=== PATIENT | male | born 1945 | race Caucasian/White ===

== ENCOUNTER 2021-02-06 17:49 | Emergency (ER) | payer MEDICARE ==
[2021-02-06] MEDS ORDERED: Zofran 4 MG/2 ML VIAL IV ONE (18:11)
[2021-02-06] MEDS ORDERED: MORPHINE SULFATE 4 MG INJ IV ONE (18:11)
[2021-02-06] MEDS ORDERED: MORPHINE SULFATE 4 MG INJ ONE (18:12)
[2021-02-06] MEDS ORDERED: Zofran 4 MG/2 ML VIAL ONE (18:12)
[2021-02-06 20:14] VITALS: O2SAT 97
[2021-02-06] MEDS ORDERED: HYDROCODONE-ACETAMIN 10-325 MG PO ONE (20:18)
[2021-02-06] MEDS ORDERED: OXYCODONE-ACETAMINOPHEN 10-325 PO STA (20:53)
--- NOTE | 2021-02-06 20:58 | ERPHSYRPT ---
- History of Present Illness Time Seen by Provider: 02/06/21 17:52 Source: patient, family Exam Limitations: no limitations Patient Subjective Stated Complaint: Pt states that he injured his ribs 3 weeks ago and was told by [facility] that he broke rib 7, he has never fully recovered and today he went to sit down in his chair and he got a "jolt" which caused him to fall forward and is now having pain in his medial lower spine that radiates to his ribs Triage Nursing Assessment: Pt brought to the ER by EMS, hypertensive, rates pain at this time as 3/10 but it gets severe when he moves, jennifer lower pitting edema, denies ever having issues with legs swelling in the past, denies any other injuries Physician History: 75 years old male with history of COPD presented in the ER with chief complaint of sudden onset mid to lower back pain earlier when he was bent to sit on a chair and felt a jolt in the mid to lower back with radiation to the seventh rib on the right side which he fractured almost 3 weeks ago. Denies any numbness tingling or weakness of lower extremities, pain is severe sharp shooting, aggravated with minimal movements and better with sitting upright position. Denies any difficulty breathing, abdominal pain palpitations, loss of bowel or bladder control. Timing/Duration: today, sudden, worse Method of Injury: bending Quality: sharp, stabbing Back Pain Location: T-spine Severity of Pain-Max: severe Severity of Pain-Current: severe Modifying Factors: Improves With: immobilization. Worsens With: movement Associated Symptoms: No fever, No chills, No urinary incontinence, No loss of bowel control, No constipation, No nausea, No vomiting, No problems urinating, No light-headedness, No dizziness, No numbness in legs/feet, No weakness, No sensory/motor loss, No tingling in legs/feet, No lower back pain, No muscle spasms Previous symptoms: no prior history Allergies/Adverse Reactions: No Known Drug Allergies Allergy (Verified 02/06/21 18:02) Home Medications: Roflumilast [Daliresp] 250 mcg PO 3XW 02/06/21 [History] Tiotropium Br/Olodaterol HCl [Stiolto Respimat Inhal [place]] 2 inh PO DAILY 02/06/21 [History] Travel Risk - International Travel Have you traveled outside of the country in past 3 weeks: No - Coronavirus Screening Are you exhibiting any of the following symptoms?: No Close contact with a COVID-19 positive Pt in past 14-21 Days: No - Vaccine Status Have you recieved a Covid-19 vaccination: No - Review of Systems Constitutional: No Symptoms Eyes: No Symptoms Ears, Nose, & Throat: No Symptoms Respiratory: Wheezing Cardiac: No Symptoms Abdominal/Gastrointestinal: No Symptoms Genitourinary Symptoms: No Symptoms Musculoskeletal: Back Pain Skin: No Symptoms Neurological: No Symptoms Psychological: No Symptoms Endocrine: No Symptoms Hematologic/Lymphatic: No Symptoms - Past Medical History Pertinent Past Medical History: Yes Respiratory History: COPD Other Medical History: kidney stones, sciatic nerve - Past Surgical History Past Surgical History: Yes - Social History Smoking Status: Former smoker Exposure to second hand smoke: No Drug Use: none Patient Lives Alone: No - Nursing Vital Signs Nursing Vital Signs: Initial Vital Signs Pulse Rate 101 H 02/06/21 17:51 Respiratory Rate 24 02/06/21 17:51 Blood Pressure 229/108 02/06/21 17:51 O2 Sat by Pulse Oximetry 95 02/06/21 17:51 Pain Scale Pain Intensity [Posterior 3 Medial Back] Pain Intensity 9 - Physical Exam General Appearance: no apparent distress, alert Eye Exam: PERRL/EOMI, eyes nml inspection Ears, Nose, Throat Exam: normal ENT inspection, pharynx normal Neck Exam: normal inspection, non-tender, supple, full range of motion Respiratory Exam: normal breath sounds, chest tenderness (Right seventh rib area), wheezing (Few scattered) Cardiovascular Exam: regular rate/rhythm, normal heart sounds Back Exam: normal inspection, vertebral tenderness (Lower thoracic upper lumbar), decreased range of motion, muscle spasm, point tenderness, No CVA tenderness Extremity Exam: normal range of motion, pelvis stable, pedal edema, swelling Neurologic Exam: alert, oriented x 3, cooperative, sensation nml, other (2+ symmetrical reflexes lower extremities. Intact sensation in the abdominal wall, back and lower extremities.), No motor deficits, No sensory deficit Skin Exam: normal color SpO2 Interpretation: normal SpO2: 97 O2 Delivery: Room Air Ordered Tests: Active Orders 24 hr Category Date Time Status LUMBAR SPINE W/O [CT] Stat Exams 02/06/21 18:10 Taken THORACIC SPINE W/O CONTRAST [CT] Stat Exams 02/06/21 18:10 Taken Medication Summary Discontinued Medications Generic Name Dose Route Start Last Admin Trade Name Mary PRN Reason Stop Dose Admin Hydrocodone Bitart/Acetaminophen 1 tablet 02/06/21 20:18 02/06/21 20:19 Hydrocodone-Acetamin 10-325 Mg PO 02/06/21 20:19 1 tablet STAT ONE Administration Morphine Sulfate 4 mg 02/06/21 18:11 02/06/21 18:21 Morphine Sulfate 4 Mg Inj IV 02/06/21 18:12 4 mg STAT ONE Administration Morphine Sulfate Confirm 02/06/21 18:12 Morphine Sulfate 4 Mg Inj Administered 02/06/21 18:13 Dose 4 mg .ROUTE .STK-MED ONE Ondansetron HCl 4 mg 02/06/21 18:11 02/06/21 18:21 Zofran 4 Mg/2 Ml Vial IV 02/06/21 18:12 4 mg STAT ONE Administration Ondansetron HCl Confirm 02/06/21 18:12 Zofran 4 Mg/2 Ml Vial Administered 02/06/21 18:13 Dose 4 mg .ROUTE .STK-MED ONE Oxycodone/Acetaminophen 2 tab 02/06/21 20:53 Oxycodone-Acetaminophen 10-325 PO 02/06/21 20:54 SENT HOME W/ PATIENT STA Oxycodone/Acetaminophen Confirm 02/06/21 21:03 Oxycodone-Acetaminophen 10-325 Administered 02/06/21 21:04 Dose 2 tab .ROUTE .STK-MED ONE - Progress Progress: improved, pain not gone completely Progress Note: 02/06/21 20:58 Is given IV pain medication followed by oral pills and pain is relatively much better but not completely resolved. Patient has negative neuro exam in lower extremities. CT thoracic spine showed T10 endplate fracture with 25% loss of vertebral height. Later on patient reports she has been hurting in the same area for the last 3 weeks although not this bad. It is quite possible that he has injured his vertebra 3 weeks ago and got worse today. Do not have a TLSO available here. Do not have beds available here for admission at [facility]. Offered transfer but patient wants to go home. Is given pain pills to go home and will give a prescription and recommended outpatient [facility] follow-up. Discussed signs symptoms of worsening needing return to ER which he seems understanding Counseled pt/family regarding: diagnosis, need for follow-up, rad results - Departure Departure Disposition: Home Clinical Impression: Closed T10 fracture Qualifiers: Encounter type: initial encounter Fracture morphology: other fracture Qualified Code(s): S22.078A - Other fracture of T9-T10 vertebra, initial encounter for closed fracture Condition: Stable Critical Care Time: No Referrals: DOCTOR,NO FAMILY [Primary Care Provider] - KASEY FERRARI MD [ACTIVE STAFF] - (1-2 days for reevaluation) ORTHO - ELIAN SCHULZ NP [NON-STAFF PHY W/O PRIVILEGES] - (1-2 days for reevaluation) Instructions: Vertebral Compression Fracture (DC) Additional Instructions: Take pain medications as needed. Use walker/cane for ambulation. Follow-up with Ortho clinic for reevaluation back support. Return to ER for intractable pain, numbness tingling weakness of waist down, loss of bowel or bladder control etc. Prescriptions: Oxycodone HCl/Acetaminophen [Percocet 7.5-325 mg Tablet] 1 each PO Q4-6HPRN PRN 3 Days #15 tablet MDD 5 PRN Reason: Pain
[2021-02-06] MEDS ORDERED: OXYCODONE-ACETAMINOPHEN 10-325 ONE (21:03)
[2021-02-06 22:29] VITALS: BP 182/79; PULSE 87
--- NOTE | 2021-02-07 08:43 | XRAY ---
Indication: Diffuse pain. Rib fracture 3 weeks ago. Multiple contiguous axial images obtained through the thoracic spine. Sagittal and coronal reformatted images obtained. Comparison: None Osseous structures demineralized consistent with patient's age. There is acute/subacute appearing fracture involving the inferior endplate of T10 with approximately 25% height loss. No spinal canal or foraminal compromise. Superior endplate of T8 demonstrate concave deformity anteriorly either prominent Schmorl node versus remote fracture. Incidental T12 vertebral hemangioma. Sagittal and coronal reformatted images demonstrates normal alignment with minimal multilevel degenerative disc space narrowing. Visualized lungs markedly limited due to respiration artifact. There is moderate pulmonary emphysema and moderate scattered arteriosclerotic calcifications. Also 1.3 cm indeterminant left upper lobe nodule. Impression: 1. T10 inferior endplate fracture as detailed. 2. T8 prominent Schmorl node versus remote fracture. 3. Osteopenia and T12 vertebral hemangioma. 4. Incidental pulmonary emphysema and 1.3 cm indeterminate left upper lobe nodule. Dedicated CT chest may yield further information.
--- NOTE | 2021-02-07 08:58 | XRAY ---
Indication: Diffuse pain. Rib fracture 3 weeks ago. Multiple contiguous axial images obtained through the lumbar spine. Sagittal and coronal reformatted images obtained. Comparison: None Osseous structures demineralized consistent with patient's age. No acute fracture, suspicious bony lesions, or osseous destructive process. Mild L4-S1 broad-based degenerative disc bulge and mild L5-S1 degenerative vacuum disc phenomena. No obvious disc herniation or spinal canal stenosis. Facets are symmetric. Sagittal and coronal reformatted images demonstrates normal alignment with L5-S1 disc space narrowing. Visualized noncontrasted soft tissues demonstrates moderate scattered arteriosclerotic calcifications. 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 Right kidney demonstrates nonobstructing punctate calculus. Visualized bowel loops demonstrate colonic diverticulosis. Impression: 1. Negative acute fracture/subluxation. 2. Osteopenia and L4-S1 degenerative disc disease. 3. 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
== END 2021-02-06 22:29 | disposition home or self-care (01) ==
LOC: ED 17:49
DX: S22.078A Other fracture of T9-T10 vertebra, initial encounter for closed fracture (principal); M54.5 Low back pain; M54.6 Pain in thoracic spine; X50.0XXA Overexertion from strenuous movement or load, initial encounter
CPT/HCPCS: 72128; 72131; 96374; 96375; 99284; J2270; J2405; A9270-GY

== ENCOUNTER 2021-02-15 13:52 | Emergency (ER) | payer MEDICARE ==
--- NOTE | 2021-02-15 13:57 | ERPHSYRPT ---
- History of Present Illness Time Seen by Provider: 02/15/21 13:57 Source: patient, family Exam Limitations: no limitations Physician History: This is a 75-year-old white male who in the last 5 weeks or so the patient had injured his ribs on the right side and has unknown rib fracture as well as a T10 thoracic spine fracture. He has been having issues with pain control. He has been given Percocet which helps control his pain but it also makes him nauseated and constipates him. He is out of his pain medication. He has been out for approximately a day and a half. Plain Tylenol and Advil have not controlled his pain. He did have vomiting x2 this morning. His main issue is that of lack of pain control. Patient did not fall and injure himself again. He was seen Dr. Cutler but his new primary doctor is Dr. Tanner. He has not seen Dr. Tanner yet. Patient has not seen pain specialist and has not been evaluated by physical therapy. Patient was brought into the emergency department by EMS. Occurred: other (Initial injury 5 weeks ago.) Injuries/Pain Location: middle (Thoracic spine and right ribs) Loss of Consciousness: no loss of consciousness Quality: sharpness Severity of Pain-Max: moderate Severity of Pain-Current: moderate Modifying Factors: Improves With: movement (Worsens), pain medication (Helps) Associated Symptoms (Fall): back pain, muscle spasms (At the level of the thoracic spine), other (Rib pain) Allergies/Adverse Reactions: No Known Drug Allergies Allergy (Verified 02/15/21 14:03) Home Medications: Roflumilast [Daliresp] 250 mcg PO UD 02/06/21 [History] Tiotropium Br/Olodaterol HCl [Stiolto Respimat Inhal [place]] 2 inh PO 1300 02/06/21 [History] Ibuprofen 200 mg [Motrin 200 mg] 200 mg PO Q6HPRN PRN 02/08/21 [History] Magnesium Oxide 400 mg PO DAILY PRN PRN 02/08/21 [History] Hx Tetanus, Diphtheria Vaccination/Date Given: No Hx Influenza Vaccination/Date Given: No Hx Pneumococcal Vaccination/Date Given: No Travel Risk - International Travel Have you traveled outside of the country in past 3 weeks: No - Coronavirus Screening Are you exhibiting any of the following symptoms?: No Close contact with a COVID-19 positive Pt in past 14-21 Days: No - Vaccine Status Have you recieved a Covid-19 vaccination: No - Review of Systems Constitutional: No Symptoms Eyes: No Symptoms Ears, Nose, & Throat: No Symptoms Respiratory: No Symptoms Cardiac: No Symptoms Abdominal/Gastrointestinal: No Symptoms Genitourinary Symptoms: No Symptoms Musculoskeletal: Back Pain, Other (Rib pain right side) Skin: No Symptoms Neurological: No Symptoms Psychological: No Symptoms Endocrine: No Symptoms Hematologic/Lymphatic: No Symptoms Immunological/Allergic: No Symptoms All Other Systems: Reviewed and Negative - Past Medical History Pertinent Past Medical History: Yes Neurological History: No Pertinent History ENT History: Cataracts Cardiac History: No Pertinent History Respiratory History: COPD Endocrine Medical History: No Pertinent History Musculoskeletal History: Fractures GI Medical History: GERD, Hernia History: No Pertinent History Psycho-Social History: No Pertinent History Male Reproductive Disorders: No Pertinent History Other Medical History: kidney stones, sciatic nerve - Past Surgical History Past Surgical History: Yes Neuro Surgical History: No Pertinent History Cardiac: No Pertinent History Respiratory: No Pertinent History Gastrointestinal: No Pertinent History Genitourinary: No Pertinent History Musculoskeletal: No Pertinent History Male Surgical History: No Pertinent History - Social History Smoking Status: Former smoker Exposure to second hand smoke: No Drug Use: none Patient Lives Alone: No - Nursing Vital Signs Nursing Vital Signs: Initial Vital Signs Temperature 97.1 F 02/15/21 13:54 Pulse Rate 91 H 02/15/21 13:54 Respiratory Rate 18 02/15/21 13:54 Blood Pressure 206/89 02/15/21 13:54 O2 Sat by Pulse Oximetry 94 L 02/15/21 13:54 Pain Scale Pain Intensity 0 - Anabel Coma Score Best Eye Response (Anabel): (4) open spontaneously Best Verbal Response (Anabel): (5) oriented Best Motor Response (Lorenzo): (6) obeys commands Lorenzo Total: 15 - Physical Exam General Appearance: mild distress, alert, obese Head Injury: no evidence of injury Eye Exam: PERRL/EOMI, eyes nml inspection ENT Exam: airway nml, nml ext.inspection, No evidence of ENT injury Neck Exam: supple, trachea midline, full range of motion, normal alignment, normal inspection Respiratory/Chest Exam: normal breath sounds, rib tenderness (Right side), No chest tenderness, No respiratory distress, No ecchymosis, No crepitus Cardiovascular Exam: normal heart sounds, regular rate/rhythm, murmur Gastrointestinal Exam: soft, normal bowel sounds, No tenderness Rectal Exam: not done Back Exam: normal inspection, decreased range of motion, muscle spasm, No CVA te nderness, No vertebral tenderness (Lower thoracic spine level) Extremity Exam: normal inspection, normal range of motion, capillary refill <3 sec, pelvis stable Neurologic Exam: alert, oriented x 3, cooperative, busperson II-XII nml as tested, normal mood/affect Skin Exam: normal color, warm, dry SpO2 Interpretation: normal O2 Delivery: Room Air - Course Nursing assessment & vital signs reviewed: Yes Ordered Tests: Active Orders 24 hr Category Date Time Status IV Insertion STAT Care 02/15/21 14:25 Active AMYLASE Stat Lab 02/15/21 15:00 Completed CBC W DIFF Stat Lab 02/15/21 14:25 Completed CMP Stat Lab 02/15/21 15:00 Completed LIPASE Stat Lab 02/15/21 15:00 Completed Lactic Acid Stat Lab 02/15/21 15:06 Completed UA W/RFX UR CULTURE Stat Lab 02/15/21 17:23 Completed Medication Summary Discontinued Medications Generic Name Dose Route Start Last Admin Trade Name Freq PRN Reason Stop Dose Admin Hydromorphone HCl 0.5 mg 02/15/21 14:25 02/15/21 14:45 Hydromorphone 1 Mg/Ml Injection IV 02/15/21 14:26 0.5 mg STAT ONE Administration Hydromorphone HCl Confirm 02/15/21 14:35 Hydromorphone 1 Mg/Ml Injection Administered 02/15/21 14:36 Dose 1 mg .ROUTE .STK-MED ONE Sodium Chloride 500 mls @ 500 mls/hr 02/15/21 14:27 02/15/21 16:06 Sodium Chloride 0.9% 500 Ml IV 02/15/21 15:26 Infused .Q1H ONE Infusion Sodium Chloride Confirm 02/15/21 14:35 Sodium Chloride 0.9% 500 Ml Administered 02/15/21 14:36 Dose 500 mls @ ud IV .STK-MED ONE Lorazepam 1 mg 02/15/21 14:27 02/15/21 14:42 Ativan 2 Mg/1 Ml Vial IV 02/15/21 14:28 1 mg STAT ONE Administration Lorazepam Confirm 02/15/21 14:35 Ativan 2 Mg/1 Ml Vial Administered 02/15/21 14:36 Dose 2 mg .ROUTE .STK-MED ONE Ondansetron HCl 4 mg 02/15/21 14:25 02/15/21 14:44 Zofran 4 Mg/2 Ml Vial IV 02/15/21 14:26 4 mg STAT ONE Administration Ondansetron HCl Confirm 02/15/21 14:34 Zofran 4 Mg/2 Ml Vial Administered 02/15/21 14:35 Dose 4 mg .ROUTE .STK-MED ONE Lab/Rad Data: Laboratory Result Diagrams 02/15/21 14:25 02/15/21 15:00 Laboratory Results 02/15/21 02/15/21 02/15/21 Range/Units 17:23 15:06 15:00 WBC (4.0-10.5) K/mm3 RBC (4.1-5.6) M/mm3 Hgb (12.5-18.0) gm/dl Hct (42-50) % MCV (78-100) fl MCH (26-32) pg MCHC (32-36) g/dl RDW (11.5-14.0) % Plt Count (150-450) K/mm3 MPV (7.5-11.0) fl Gran % (36.0-66.0) % Eos # (Auto) (0-0.5) Absolute Lymphs (auto) (1.0-4.6) Absolute Monos (auto) (0.0-1.3) Lymphocytes % (24.0-44.0) % Monocytes % (0.0-12.0) % Eosinophils % (0.00-5.0) % Basophils % (0.0-0.4) % Absolute Granulocytes (1.4-6.9) Basophils # (0-0.4) Sodium 138 (137-145) mmol/L Potassium 3.9 (3.5-5.1) mmol/L Chloride 102 (98-107) mmol/L Carbon Dioxide 28 (22-30) mmol/L Anion Gap 11.4 (5-15) MEQ/L BUN 20 (9-20) mg/dL Creatinine 0.80 (0.66-1.25) mg/dL Estimated GFR > 60.0 ML/MIN Glucose 105 (74-106) mg/dL Lactic Acid 0.8 (0.4-2.0) Calcium 9.3 (8.4-10.2) mg/dL Total Bilirubin 0.50 (0.2-1.3) mg/dL AST 23 (17-59) U/L ALT 29 (0-50) U/L Alkaline Phosphatase 85 (38-126) U/L Serum Total Protein 7.9 (6.3-8.2) g/dL Albumin 3.8 (3.5-5.0) g/dL Amylase 42 (30-110) U/L Lipase 29 (23-300) U/L Urine Color YELLOW (YELLOW) Urine Appearance CLEAR (CLEAR) Urine pH 7.0 (5-6) Ur Specific [place] 1.012 (1.005-1.025) Urine Protein NEGATIVE (Negative) Urine Ketones TRACE (NEGATIVE) Urine Blood SMALL (0-5) Hector/ul Urine Nitrite NEGATIVE (NEGATIVE) Urine Bilirubin NEGATIVE (NEGATIVE) Urine Urobilinogen NEGATIVE (0-1) mg/dL Ur Leukocyte Esterase NEGATIVE (NEGATIVE) Urine WBC (Auto) 0-2 (0-5) /HPF Urine RBC (Auto) 6-10 (0-2) /HPF U Epithel Cells (Auto) NONE (FEW) /HPF Urine Bacteria (Auto) NONE SEEN (NEGATIVE) /HPF Urine Mucus (Auto) SLIGHT (NEGATIVE) /HPF Urine Culture Reflexed NO (NO) Urine Glucose NEGATIVE (NEGATIVE) mg/dL 02/15/21 Range/Units 14:25 WBC 7.2 (4.0-10.5) K/mm3 RBC 4.71 (4.1-5.6) M/mm3 Hgb 14.6 (12.5-18.0) gm/dl Hct 45.7 (42-50) % MCV 97.0 (78-100) fl MCH 31.0 (26-32) pg MCHC 31.9 L (32-36) g/dl RDW 13.9 (11.5-14.0) % Plt Count 159 (150-450) K/mm3 MPV 11.4 H (7.5-11.0) fl Gran % 84.5 H (36.0-66.0) % Eos # (Auto) 0.03 (0-0.5) Absolute Lymphs (auto) 0.62 L (1.0-4.6) Absolute Monos (auto) 0.45 (0.0-1.3) Lymphocytes % 8.7 L (24.0-44.0) % Monocytes % 6.3 (0.0-12.0) % Eosinophils % 0.4 (0.00-5.0) % Basophils % 0.1 (0.0-0.4) % Absolute Granulocytes 6.04 (1.4-6.9) Basophils # 0.01 (0-0.4) Sodium (137-145) mmol/L Potassium (3.5-5.1) mmol/L Chloride (98-107) mmol/L Carbon Dioxide (22-30) mmol/L Anion Gap (5-15) MEQ/L BUN (9-20) mg/dL Creatinine (0.66-1.25) mg/dL Estimated GFR ML/MIN Glucose (74-106) mg/dL Lactic Acid (0.4-2.0) Calcium (8.4-10.2) mg/dL Total Bilirubin (0.2-1.3) mg/dL AST (17-59) U/L ALT (0-50) U/L Alkaline Phosphatase (38-126) U/L Serum Total Protein (6.3-8.2) g/dL Albumin (3.5-5.0) g/dL Amylase (30-110) U/L Lipase (23-300) U/L Urine Color (YELLOW) Urine Appearance (CLEAR) Urine pH (5-6) Ur Specific [place] (1.005-1.025) Urine Protein (Negative) Urine Ketones (NEGATIVE) Urine Blood (0-5) Hector/ul Urine Nitrite (NEGATIVE) Urine Bilirubin (NEGATIVE) Urine Urobilinogen (0-1) mg/dL Ur Leukocyte Esterase (NEGATIVE) Urine WBC (Auto) (0-5) /HPF Urine RBC (Auto) (0-2) /HPF U Epithel Cells (Auto) (FEW) /HPF Urine Bacteria (Auto) (NEGATIVE) /HPF Urine Mucus (Auto) (NEGATIVE) /HPF Urine Culture Reflexed (NO) Urine Glucose (NEGATIVE) mg/dL - Progress Progress: improved, pain not gone completely Progress Note: 02/15/21 17:50 Medical decision making: This patient's issue is pain control for chronic back issue and rib pain. He has stable fractures of both regions. He was out of his pain medicine. He does not have a pain specialist. He has not yet seen a new primary care physician. He is now comfortable after injections of pain medication. His work-up does not give a sufficient diagnosis enough for admission. His renal function is normal. We will place him on a combination of Demerol, Phenergan and steroids. He can then follow-up with his primary care physician who can evaluate him and possibly add a muscle relaxant to his regimen and/or refer him to physical therapy or a pain specialist. Counseled pt/family regarding: lab results, diagnosis, need for follow-up - Departure Departure Disposition: Home Clinical Impression: Back pain, Rib pain Condition: Stable Critical Care Time: No Referrals: DOCTOR,NO FAMILY [Primary Care Provider] - Additional Instructions: Take your medications as prescribed. Follow-up with your primary care doctor's office on Thursday February 18, 2021. Make sure that you request a referral to a pain specialist and physical therapy if indicated. Prescriptions: Meperidine HCl 50 mg [Demerol 50 MG] 50 mg PO Q8H PRN PRN #9 tablet MDD 3 PRN Reason: Moderate To Severe Pain Promethazine HCl 25 mg [Phenergan 25 mg] 25 mg PO Q8H PRN PRN #9 tablet MDD 3 PRN Reason: Moderate To Severe Pain Prednisone 10 mg [Deltasone 10 mg] 10 mg PO TID #12 tablet
[2021-02-15] MEDS ORDERED: Zofran 4 MG/2 ML VIAL IV ONE (14:25)
[2021-02-15] MEDS ORDERED: Hydromorphone 1 mg/ml Injection IV ONE (14:25)
[2021-02-15] MEDS ORDERED: Sodium Chloride 0.9% 500 ML 500 ML IV ONE ×2 (14:27→14:35)
[2021-02-15] MEDS ORDERED: Ativan 2 MG/1 ML VIAL IV ONE (14:27)
[2021-02-15] MEDS ORDERED: Zofran 4 MG/2 ML VIAL ONE (14:34)
[2021-02-15] MEDS ORDERED: Hydromorphone 1 mg/ml Injection ONE (14:35)
[2021-02-15] MEDS ORDERED: Ativan 2 MG/1 ML VIAL ONE (14:35)
[2021-02-15 15:19] LABS: Absolute Neutrophil Ct (ANC) 6.04 (1.4-6.9); BASOPHIL % 0.1 % (0.0-0.4); Basophil (Absolute #) 0.01 (0-0.4); Eosinophil % 0.4 % (0.00-5.0); Eosinophil (Absolute #) 0.03 (0-0.5); Hematocrit 45.7 % (42-50); Hemoglobin 14.6 gm/dl (12.5-18.0); Lymphocyte (Absolute #) 0.62 (1.0-4.6); Lymphocytes % 8.7 % (24.0-44.0); Mean Corpuscular Hgb Concent. 31.9 g/dl (32-36); Mean Platelet Volume 11.4 fl (7.5-11.0); Monocyte (Absolute #) 0.45 (0.0-1.3); Monocytes % 6.3 % (0.0-12.0); Neutrophil % 84.5 % (36.0-66.0); Platelet Count 159 K/mm3 (150-450); Red Blood Count 4.71 M/mm3 (4.1-5.6); Red Cell Distribution Width 13.9 % (11.5-14.0); White Blood Count 7.2 K/mm3 (4.0-10.5)
[2021-02-15 15:35] LABS: ALBUMIN 3.8 g/dL (3.5-5.0); ALKALINE PHOSPHATASE 85 U/L (38-126); AMYLASE 42 U/L (30-110); ANION GAP 11.4 MEQ/L (5-15); BLOOD UREA NITROGEN 20 mg/dL (9-20); CHLORIDE 102 mmol/L (98-107); Calcium 9.3 mg/dL (8.4-10.2); Carbon Dioxide 28 mmol/L (22-30); EST GLOMERULAR FILTRATION RATE > 60.0 ML/MIN; Glucose 105 mg/dL (74-106); LIPASE 29 U/L (23-300); Potassium 3.9 mmol/L (3.5-5.1); SGOT/AST 23 U/L (17-59); SGPT/ALT 29 U/L (0-50); SODIUM 138 mmol/L (137-145); Total Protein 7.9 g/dL (6.3-8.2)
[2021-02-15 17:22] VITALS: BP 189/86; PULSE 95; O2SAT 98
[2021-02-15 17:39] LABS: Appearance CLEAR (CLEAR); Bilirubin NEGATIVE (NEGATIVE); Blood SMALL Ery/ul (0-5); Glucose NEGATIVE (NEGATIVE); Ketones TRACE (NEGATIVE); Leukocyte Esterase NEGATIVE (NEGATIVE); Mucus SLIGHT /HPF (NEGATIVE); Nitrite NEGATIVE (NEGATIVE); Protein,Urine Dip NEGATIVE (Negative); Specific Gravity 1.012 (1.005-1.025); Urobilinogen NEGATIVE mg/dL (0-1); WBC 0-2 /HPF (0-5)
[2021-02-15 17:40] LABS: Bacteria NONE SEEN /HPF (NEGATIVE)
== END 2021-02-15 18:14 | disposition home or self-care (01) ==
LOC: ED 13:52
DX: R07.81 Pleurodynia (principal); M62.838 Other muscle spasm; J44.9 Chronic obstructive pulmonary disease, unspecified
CPT/HCPCS: 36415; 80053; 81001; 82150; 83605; 83690; 85025; 96374; 96375; 99284; J1170; J2060; J2405

== ENCOUNTER 2021-02-19 05:59 | Emergency (ER) | payer MEDICARE ==
--- NOTE | 2021-02-19 07:06 | ERPHSYRPT ---
- History of Present Illness Time Seen by Provider: 02/19/21 07:00 Source: patient, family Exam Limitations: no limitations Patient Subjective Stated Complaint: Patient states " I woke up around 0300 and was not feeliong well and called my . I had backed into a fridge handle and fractured the 7th rib on my right side and FX of T-10 of my spine. Around 0415 I started having severe pain in my right side so I took a pain med and phenergan and around 0500 I started vomiting in which has now made my pain way worse and when I vomited my throat and esophagus started burning like crazy so I called 911." Triage Nursing Assessment: Patient arrived to ED per ambulance. Patient A/O times 4. Patient able to follow instructions without difficulty. Lungs diminished in all lobes A/P throughout. Patient denies any SOB or chest pain or discomfort. Cap refill < 3 seconds. No S/S of acute respiratory distress noted. 02 sat 95% on room air. Patient with non-pitting edema to bilateral lower extremities. + pedal and radial pulses noted bilateral. Patient with 20G IV in left AC per EMS. Lines flushes without difficulty. No S/S of infiltration noted. Patient stated his nausea is better since Zofran and now is requesting something for his pain in the right side/ABD area R/T FX rib. Patient stated he had not taken any pain meds in the last 24 hours with exception of hydromorphone 2mg at 0415 which he thinks made him sick. Patient denies eating anything with pain med. Patient educated to try some crackers or something small when he takes pain meds and educated to take pain meds as needed/ordered to keep pain at comfortable level. Skin turgor 4-5 seconds. Patient hypertensive upon arrival. Physician History: This is a 75-year-old white male with known COPD who has been seen in our emergency department 4 times in the last 2 weeks. Patient did injure his back sustaining a thoracic spine compression fracture as well as sustaining a rib fracture. This injury occurred several weeks ago. He is coming to the emerge ncy department with complaints of pain and nausea. He was last seen by me in this emergency room on 02/15/2021 with similar complaints. He was sent home with a prescription for Phenergan and Dilaudid. They still have Dilaudid pills remaining. Patient was told to follow-up with his new primary care doctor, Dr. Tanner by phone on 02/18/2021. They did not. He has been told to follow-up each time after each emergency room visit. He has not done so. This morning, he started having some heartburn which she occasionally has but he felt that it was different than usual. Because of the persistence of this patient's intermittent back pain, nausea vomiting, and now new heartburn symptoms he came back into the emergency department for evaluation. He denies fever. He denies shortness of breath. Timing/Duration: intermittent, worse Severity: moderate Associated Symptoms: nausea, vomiting, heartburn, No abdominal pain, No shortness of breath Allergies/Adverse Reactions: No Known Drug Allergies Allergy (Verified 02/19/21 06:08) Home Medications: Roflumilast [Daliresp] 250 mcg PO UD 02/06/21 [History] Tiotropium Br/Olodaterol HCl [Stiolto Respimat Inhal [place]] 2 inh PO 1300 02/06/21 [History] Magnesium Oxide 400 mg PO DAILY PRN PRN 02/08/21 [History] Hx Tetanus, Diphtheria Vaccination/Date Given: No Hx Influenza Vaccination/Date Given: No Hx Pneumococcal Vaccination/Date Given: No Immunizations Up to Date: Yes Travel Risk - International Travel Have you traveled outside of the country in past 3 weeks: No - Coronavirus Screening Are you exhibiting any of the following symptoms?: No Close contact with a COVID-19 positive Pt in past 14-21 Days: No - Vaccine Status Have you recieved a Covid-19 vaccination: No - Review of Systems Constitutional: No Symptoms Eyes: No Symptoms Ears, Nose, & Throat: No Symptoms Respiratory: No Symptoms Abdominal/Gastrointestinal: Nausea, Vomiting Genitourinary Symptoms: No Symptoms Musculoskeletal: No Symptoms Skin: No Symptoms Neurological: No Symptoms Psychological: No Symptoms Endocrine: No Symptoms Hematologic/Lymphatic: No Symptoms Immunological/Allergic: No Symptoms All Other Systems: Reviewed and Negative - Past Medical History Pertinent Past Medical History: Yes Neurological History: No Pertinent History ENT History: Cataracts Cardiac History: No Pertinent History Respiratory History: COPD Endocrine Medical History: No Pertinent History Musculoskeletal History: Fractures GI Medical History: GERD, Hernia History: No Pertinent History Psycho-Social History: No Pertinent History Male Reproductive Disorders: No Pertinent History Other Medical History: HX Kidney Stones, HX Sciatic Nerve Pain - Past Surgical History Past Surgical History: Yes Neuro Surgical History: No Pertinent History Cardiac: No Pertinent History Respiratory: No Pertinent History Gastrointestinal: No Pertinent History Genitourinary: No Pertinent History Musculoskeletal: No Pertinent History Male Surgical History: No Pertinent History - Social History Smoking Status: Former smoker Exposure to second hand smoke: No Drug Use: none Patient Lives Alone: No - Nursing Vital Signs Nursing Vital Signs: Initial Vital Signs Temperature 97.7 F 02/19/21 06:05 Pulse Rate 68 02/19/21 06:05 Respiratory Rate 22 02/19/21 06:05 Blood Pressure 156/106 02/19/21 06:05 O2 Sat by Pulse Oximetry 95 02/19/21 06:05 Pain Scale Pain Intensity 2 - Physical Exam General Appearance: mild distress, alert, anxiety, obese Eye Exam: PERRL/EOMI, eyes nml inspection Ears, Nose, Throat Exam: normal ENT inspection, moist mucous membranes Neck Exam: normal inspection, non-tender, supple, full range of motion Respiratory Exam: normal breath sounds, lungs clear, airway intact, No chest tenderness, No respiratory distress Cardiovascular Exam: irregular Gastrointestinal/Abdomen Exam: soft, normal bowel sounds, No tenderness Rectal Exam: not done Back Exam: normal inspection, decreased range of motion Extremity Exam: normal range of motion, pelvis stable, pedal edema, swelling Neurologic Exam: alert, oriented x 3, cooperative, office clinician II-XII nml as tested, normal mood/affect Skin Exam: normal color, warm, dry Lymphatic Exam: No adenopathy SpO2 Interpretation: normal SpO2: 95 O2 Delivery: Room Air - Course Nursing assessment & vital signs reviewed: Yes EKG Interpreted by Me: RATE (150), A-fib, prolonged QT interval, Other (On today's EKG when compared to EKG dated 02/08/2021, there is new atrial fibrillation present and borderline prolonged QT interval. T wave abnormality seen on the prior EKG have now resolved.) Ordered Tests: Active Orders 24 hr Category Date Time Status EKG-ER Only STAT Care 02/19/21 07:06 Active EKG-ER Only STAT Care 02/19/21 09:20 Active IV Insertion STAT Care 02/19/21 07:06 Active Pulse Oximetry (ED) STAT Care 02/19/21 07:06 Active CHEST WITH CONTRAST [CT] Stat Exams 02/19/21 07:11 Completed CBC W DIFF Stat Lab 02/19/21 07:42 Completed CMP Stat Lab 02/19/21 07:42 Completed D-DIMER QUANTITATIVE Stat Lab 02/19/21 07:42 Completed NT PRO BNP Stat Lab 02/19/21 07:42 Completed PROTIME WITH INR Stat Lab 02/19/21 07:42 Completed TROPONIN Q3H Lab 02/19/21 07:42 Completed TROPONIN Q3H Lab 02/19/21 10:15 Ordered TROPONIN Q3H Lab 02/19/21 13:15 Ordered TROPONIN Q3H Lab 02/19/21 16:15 Ordered TROPONIN Q3H Lab 02/19/21 19:15 Ordered Transfer Order Routine Transfer 02/19/21 Ordered Medication Summary Generic Name Dose Route Start Last Admin Trade Name Freq PRN Reason Stop Dose Admin Sodium Chloride 1,000 mls @ 50 mls/hr 02/19/21 07:15 02/19/21 07:46 Sodium Chloride 0.9% 1000 Ml IV 03/21/21 07:14 50 mls/hr .Q20H MAUREEN Administration Diltiazem HCl 100 mls @ 5 mls/hr 02/19/21 09:04 Cardizem Drip 100 Mg/100 Ml D5w IV 03/21/21 09:03 .Q20H PRN HEART RATE/ A-FIB Protocol 5 MG/HR Discontinued Medications Generic Name Dose Route Start Last Admin Trade Name Freq PRN Reason Stop Dose Admin Diltiazem HCl 20 mg 02/19/21 08:55 02/19/21 08:58 Cardizem Iv 50 Mg/10 Ml IV 02/19/21 08:56 50 mg STAT ONE Administration Diltiazem HCl Confirm 02/19/21 08:57 Cardizem Iv 50 Mg/10 Ml Administered 02/19/21 08:58 Dose 50 mg IV .STK-MED ONE Furosemide 40 mg 02/19/21 07:46 02/19/21 07:49 Lasix 40 Mg/4 Ml IV 02/19/21 07:47 40 mg STAT ONE Administration Furosemide Confirm 02/19/21 07:48 Lasix 40 Mg/4 Ml Administered 02/19/21 07:49 Dose 40 mg .ROUTE .STK-MED ONE Metoprolol Tartrate 5 mg 02/19/21 07:47 02/19/21 07:49 Lopressor 5 Mg/5 Ml Injection IV 02/19/21 07:48 5 mg STAT ONE Administration Metoprolol Tartrate Confirm 02/19/21 07:48 Lopressor 5 Mg/5 Ml Injection Administered 02/19/21 07:49 Dose 5 mg IV .STK-MED ONE Morphine Sulfate 4 mg 02/19/21 07:06 02/19/21 07:45 Morphine Sulfate 4 Mg Inj IV 02/19/21 07:07 4 mg STAT ONE Administration Morphine Sulfate Confirm 02/19/21 07:41 Morphine Sulfate 4 Mg Inj Administered 02/19/21 07:42 Dose 4 mg .ROUTE .STK-MED ONE Ondansetron HCl 4 mg 02/19/21 07:06 02/19/21 07:45 Zofran 4 Mg/2 Ml Vial IV 02/19/21 07:07 4 mg STAT ONE Administration Ondansetron HCl Confirm 02/19/21 07:41 Zofran 4 Mg/2 Ml Vial Administered 02/19/21 07:42 Dose 4 mg .ROUTE .STK-MED ONE Pantoprazole Sodium 40 mg 02/19/21 07:08 02/19/21 07:45 Protonix 40 Mg Iv IV 02/19/21 07:09 40 mg STAT ONE Administration Pantoprazole Sodium Confirm 02/19/21 07:41 Protonix 40 Mg Iv Administered 02/19/21 07:42 Dose 40 mg IV .STK-MED ONE Lab/Rad Data: Laboratory Result Diagrams 02/19/21 07:42 02/19/21 07:42 Laboratory Results 02/19/21 02/19/21 02/19/21 Range/Units 07:42 07:42 07:42 WBC (4.0-10.5) K/mm3 RBC (4.1-5.6) M/mm3 Hgb (12.5-18.0) gm/dl Hct (42-50) % MCV (78-100) fl MCH (26-32) pg MCHC (32-36) g/dl RDW (11.5-14.0) % Plt Count (150-450) K/mm3 MPV (7.5-11.0) fl Gran % (36.0-66.0) % Eos # (Auto) (0-0.5) Absolute Lymphs (auto) (1.0-4.6) Absolute Monos (auto) (0.0-1.3) Lymphocytes % (24.0-44.0) % Monocytes % (0.0-12.0) % Eosinophils % (0.00-5.0) % Basophils % (0.0-0.4) % Absolute Granulocytes (1.4-6.9) Basophils # (0-0.4) PT 12.2 (8.83-12.87) SECONDS INR 1.08 (0.8-3.0) D-Dimer 1461 H* (215-500) ng/mL Sodium 140 (137-145) mmol/L Potassium 4.1 (3.5-5.1) mmol/L Chloride 103 (98-107) mmol/L Carbon Dioxide 30 (22-30) mmol/L Anion Gap 11.2 (5-15) MEQ/L BUN 28 H (9-20) mg/dL Creatinine 1.03 (0.66-1.25) mg/dL Estimated GFR > 60.0 ML/MIN Glucose 107 H (74-106) mg/dL Calcium 9.4 (8.4-10.2) mg/dL Total Bilirubin 0.40 (0.2-1.3) mg/dL AST 22 (17-59) U/L ALT 31 (0-50) U/L Alkaline Phosphatase 81 (38-126) U/L Troponin I 0.082 H* (0.000-0.034) ng/mL NT-Pro-B Natriuret Pep 1360 H (0-900) pg/mL Serum Total Protein 7.7 (6.3-8.2) g/dL Albumin 3.6 (3.5-5.0) g/dL 02/19/21 Range/Units 07:42 WBC 7.8 (4.0-10.5) K/mm3 RBC 5.05 (4.1-5.6) M/mm3 Hgb 15.5 (12.5-18.0) gm/dl Hct 49.2 (42-50) % MCV 97.4 (78-100) fl MCH 30.7 (26-32) pg MCHC 31.5 L (32-36) g/dl RDW 14.2 H (11.5-14.0) % Plt Count 178 (150-450) K/mm3 MPV 10.9 (7.5-11.0) fl Gran % 72.3 H (36.0-66.0) % Eos # (Auto) 0.06 (0-0.5) Absolute Lymphs (auto) 1.10 (1.0-4.6) Absolute Monos (auto) 0.97 (0.0-1.3) Lymphocytes % 14.1 L (24.0-44.0) % Monocytes % 12.5 H (0.0-12.0) % Eosinophils % 0.8 (0.00-5.0) % Basophils % 0.3 (0.0-0.4) % Absolute Granulocytes 5.63 (1.4-6.9) Basophils # 0.02 (0-0.4) PT (8.83-12.87) SECONDS INR (0.8-3.0) D-Dimer (215-500) ng/mL Sodium (137-145) mmol/L Potassium (3.5-5.1) mmol/L Chloride (98-107) mmol/L Carbon Dioxide (22-30) mmol/L Anion Gap (5-15) MEQ/L BUN (9-20) mg/dL Creatinine (0.66-1.25) mg/dL Estimated GFR ML/MIN Glucose (74-106) mg/dL Calcium (8.4-10.2) mg/dL Total Bilirubin (0.2-1.3) mg/dL AST (17-59) U/L ALT (0-50) U/L Alkaline Phosphatase (38-126) U/L Troponin I (0.000-0.034) ng/mL NT-Pro-B Natriuret Pep (0-900) pg/mL Serum Total Protein (6.3-8.2) g/dL Albumin (3.5-5.0) g/dL - Progress Progress: improved, pain not gone completely, re-examined Progress Note: 02/19/21 09:27 CAT scan of the chest with contrast is negative for pulmonary embolus. There is pulmonary emphysema present. Patient has left upper lobe noncalcified nodule that is worrisome for malignancy. The prior T10 fracture and other chronic thoracic spine findings are unchanged when compared to thoracic spine CT scan performed previously. Medical decision making: This patient has new onset atrial fibrillation, and elevated troponin level and CHF. He also presented with hypertension. Patient has a known thoracic spine fracture as well as right-sided rib fractures. They have been present for approximately 5 to 6 weeks. However the pain has been intermittently present and intractable. Patient has not seen anybody in follow- up since his first visit here approximately 2 to 3 weeks ago. We do not have any beds available today at [facility]. Patient will need to be transferred out to another facility where there is a electrical designer present and available. 02/19/21 09:39 Repeat twelve-lead EKG after the Cardizem bolus and Cardizem drip performed at 935 today in the morning shows a heart rate of 84 persistent atrial fibrillation no other changes. I spoke with Dr. Roberts who is the emergency room physician covering [facility] emergency department. I reviewed the patient history, physical findings, x-ray results and laboratory results. Dr. Roberts accepts the patient in transfer. I reviewed the CAT scan results with the patient and his spouse including the presence of the left upper lobe pulmonary nodule that is concer sangeeta for malignancy. Counseled pt/family regarding: lab results, diagnosis, need for follow-up, rad results - Departure Departure Disposition: Transfer Clinical Impression: Hypertension, New onset atrial fibrillation, Congestive heart failure, Intractable back pain, Left upper lobe pulmonary nodule, Elevated troponin, Intractable vomiting with nausea Condition: Stable Critical Care Time: Yes Critical Care Time(excluding separately billable procedures): Critical 30-74 mins Referrals: DOCTOR,NO FAMILY [NON-STAFF PHY W/O PRIVILEGES] - Instructions: Heart Failure
[2021-02-19] MEDS ORDERED: PROTONIX 40 MG IV IV ONE (07:41)
[2021-02-19] MEDS ORDERED: MORPHINE SULFATE 4 MG INJ ONE (07:41)
[2021-02-19] MEDS ORDERED: Zofran 4 MG/2 ML VIAL ONE (07:41)
[2021-02-19] MEDS ORDERED: Sodium Chloride 0.9% 1000 ML 1,000 ML ONE (07:41)
[2021-02-19] MEDS: PROTONIX 40 MG IV IV ONE (07:45)
[2021-02-19] MEDS: Zofran 4 MG/2 ML VIAL IV ONE (07:45)
[2021-02-19] MEDS: MORPHINE SULFATE 4 MG INJ IV ONE (07:45)
[2021-02-19] MEDS: Sodium Chloride 0.9% 1000 ML 1,000 ML IV SCH (07:46)
[2021-02-19] MEDS ORDERED: Lasix 40 MG/4 ML ONE (07:48)
[2021-02-19] MEDS ORDERED: LOPRESSOR 5 MG/5 ML INJECTION IV ONE (07:48)
[2021-02-19] MEDS: LOPRESSOR 5 MG/5 ML INJECTION IV ONE (07:49)
[2021-02-19] MEDS: Lasix 40 MG/4 ML IV ONE (07:49)
[2021-02-19 07:52] LABS: Absolute Neutrophil Ct (ANC) 5.63 (1.4-6.9); BASOPHIL % 0.3 % (0.0-0.4); Basophil (Absolute #) 0.02 (0-0.4); Eosinophil % 0.8 % (0.00-5.0); Eosinophil (Absolute #) 0.06 (0-0.5); Hematocrit 49.2 % (42-50); Hemoglobin 15.5 gm/dl (12.5-18.0); Lymphocytes % 14.1 % (24.0-44.0); Mean Cell Volume 97.4 fl (78-100); Mean Corpuscular Hemoglobin 30.7 pg (26-32); Mean Corpuscular Hgb Concent. 31.5 g/dl (32-36); Mean Platelet Volume 10.9 fl (7.5-11.0); Monocyte (Absolute #) 0.97 (0.0-1.3); Monocytes % 12.5 % (0.0-12.0); Neutrophil % 72.3 % (36.0-66.0); Platelet Count 178 K/mm3 (150-450); Red Blood Count 5.05 M/mm3 (4.1-5.6); Red Cell Distribution Width 14.2 % (11.5-14.0); White Blood Count 7.8 K/mm3 (4.0-10.5)
[2021-02-19 08:10] LABS: INR 1.08 (0.8-3.0); PROTIME 12.2 SECONDS (8.83-12.87)
[2021-02-19 08:17] LABS: ALBUMIN 3.6 g/dL (3.5-5.0); ALKALINE PHOSPHATASE 81 U/L (38-126); ANION GAP 11.2 MEQ/L (5-15); BLOOD UREA NITROGEN 28 mg/dL (9-20); CHLORIDE 103 mmol/L (98-107); Calcium 9.4 mg/dL (8.4-10.2); Carbon Dioxide 30 mmol/L (22-30); Creatinine 1 1.03 mg/dL (0.66-1.25); EST GLOMERULAR FILTRATION RATE > 60.0 ML/MIN; Glucose 107 mg/dL (74-106); NT PRO BNP 1360 pg/mL (0-900); Potassium 4.1 mmol/L (3.5-5.1); SGOT/AST 22 U/L (17-59); SGPT/ALT 31 U/L (0-50); SODIUM 140 mmol/L (137-145); Total Protein 7.7 g/dL (6.3-8.2)
[2021-02-19] MEDS ORDERED: Cardizem IV 50 MG/10 ML IV ONE (08:57)
[2021-02-19] MEDS: Cardizem IV 50 MG/10 ML IV ONE (08:58)
[2021-02-19] MEDS ORDERED: CARDIZEM DRIP 100 MG/100 ML D5W 100 ML IV PRN (09:04)
[2021-02-19] MEDS ORDERED: CARDIZEM DRIP 100 MG/100 ML D5W 100 ML IV ONE (09:07)
--- NOTE | 2021-02-19 09:20 | XRAY ---
Indication: Chest and back pain. Known T10 fracture. Multiple contiguous axial images obtained through the chest using 100 cc Isovue 370 contrast and PE protocol. Comparison: None There is good opacification of the pulmonary arteries to include the lobar and segmental branches. No pulmonary embolus. Heart is borderline enlarged. Aorta demonstrates scattered arteriosclerotic calcifications without aneurysm/dissection. No pathologic mediastinal/hilar lymphadenopathy. Lungs demonstrate diffuse pulmonary emphysema with minimal scattered fibrosis/scarring bilaterally and tiny right upper lobe calcified granuloma. Posterior left upper lobe demonstrates a 1.3 cm noncalcified nodule with irregular margins extending to the pleura worrisome for malignancy. No infiltrate or effusion. Bony thorax demonstrates osteopenia and CT proven T10 fracture as seen on CT thoracic spine February 06, 2021. Also stable T8 superior endplate concave deformity either prominent Schmorl node versus remote fracture and incidental T12 vertebral hemangioma. Limited upper abdomen including adrenal glands are unremarkable. Impression: 1. Negative pulmonary embolus. 2. Pulmonary emphysema, left upper lobe noncalcified nodule worrisome for malignancy, T10 fracture, and chronic bony findings all unchanged with respect to recent CT thoracic spine.
[2021-02-19 09:36] VITALS: BP 115/76; PULSE 85
[2021-02-19 09:41] VITALS: O2SAT 95
== END 2021-02-19 10:11 | disposition short-term general hospital (02) ==
LOC: ED 05:59
DX: I10 Essential (primary) hypertension (principal); I48.91 Unspecified atrial fibrillation; I50.9 Heart failure, unspecified; M54.9 Dorsalgia, unspecified; R91.1 Solitary pulmonary nodule; R74.8 Abnormal levels of other serum enzymes; R11.2 Nausea with vomiting, unspecified; Z87.442 Personal history of urinary calculi; J44.9 Chronic obstructive pulmonary disease, unspecified; Z79.899 Other long term (current) drug therapy
CPT/HCPCS: 36000; 36415; 71260; 80053; 83880; 84484; 85025; 85379; 85610; 93005; 93041; 94760; 96360; 96361; 96374; 96375; 99285; 99291; J1940; J2270; J2405

== ENCOUNTER 2021-03-15 13:17 | Observation (INO) | payer MEDICARE ==
--- NOTE | 2021-03-15 13:44 | XRAY ---
Indication: Dyspnea. COPD. Comparison: February 08, 2021. Portable chest remains hyperinflated without focal infiltrate, consolidation, or large effusion. Stable CT proven left upper lobe noncalcified nodule. Heart not enlarged. Bony thorax again demonstrates osteopenia with new T10 kyphoplasty. Impression: Again COPD. Grossly stable left upper lobe noncalcified nodule further detailed CT PE study February 19, 2021. No new/acute cardiopulmonary abnormalities.
[2021-03-15 13:49] LABS: Absolute Neutrophil Ct (ANC) 3.39 (1.4-6.9); BASOPHIL % 0.2 % (0.0-0.4); Basophil (Absolute #) 0.01 (0-0.4); Eosinophil % 2.3 % (0.00-5.0); Eosinophil (Absolute #) 0.12 (0-0.5); Hematocrit 40.8 % (42-50); Hemoglobin 12.7 gm/dl (12.5-18.0); Lymphocyte (Absolute #) 1.09 (1.0-4.6); Lymphocytes % 20.5 % (24.0-44.0); Mean Cell Volume 98.3 fl (78-100); Mean Corpuscular Hemoglobin 30.6 pg (26-32); Mean Corpuscular Hgb Concent. 31.1 g/dl (32-36); Mean Platelet Volume 10.9 fl (7.5-11.0); Monocytes % 13.2 % (0.0-12.0); Neutrophil % 63.8 % (36.0-66.0); Platelet Count 187 K/mm3 (150-450); Red Blood Count 4.15 M/mm3 (4.1-5.6); Red Cell Distribution Width 14.4 % (11.5-14.0); White Blood Count 5.3 K/mm3 (4.0-10.5)
[2021-03-15 14:15] LABS: ALBUMIN 3.6 g/dL (3.5-5.0); ALKALINE PHOSPHATASE 129 U/L (38-126); ANION GAP 12.5 MEQ/L (5-15); BLOOD UREA NITROGEN 20 mg/dL (9-20); CHLORIDE 97 mmol/L (98-107); Calcium 9.6 mg/dL (8.4-10.2); Carbon Dioxide 33 mmol/L (22-30); Creatinine 1 1.24 mg/dL (0.66-1.25); EST GLOMERULAR FILTRATION RATE > 60.0 ML/MIN; Glucose 105 mg/dL (74-106); NT PRO BNP 892 pg/mL (0-900); Potassium 4.2 mmol/L (3.5-5.1); SGOT/AST 67 U/L (17-59); SGPT/ALT 94 U/L (0-50); SODIUM 138 mmol/L (137-145); Total Protein 7.9 g/dL (6.3-8.2)
--- NOTE | 2021-03-15 14:18 | ERPHSYRPT ---
- History of Present Illness Source: patient, other (SO) Patient Subjective Stated Complaint: Pt states that he was headed to the doctors office and became short of breath Triage Nursing Assessment: Pt brought to the ER by EMS, hypertensive, rates old rib pain as 10/28, wears 4L NC at home and EMS brought him in on 6L, oxygen is at 100%, skin n/w/d, pulses normal, doesn't appear to be in any distress Physician History: 75 yo wm who had a VA on 02/19/21 w subsequent cath wo stents/CABG presents w increasing lethargy and dyspnea which got worse today after pt took off his 4L O2 NC to get dressed for his appointment w Dr. Tanner. Pt has h/o COPD/CHF/VA and was 2L O2 dep at night before VA. He denies CP/fever/cough/N/V/D/melena/hematochezia. Timing/Duration: today Activities at Onset: other (Getting dressed) Severity of Dyspnea-Max: moderate Severity of Dyspnea-Current: moderate Possible Cause: frequent episodes Modifying Factors: Improves With: activity Associated Symptoms: edema, loss of appetite, weakness, leg swelling, No anxiety, No cough, No chest pain/discomfort, No fever, No insomnia, No lightheadedness, No ankle swelling, No chills, No hemoptysis, No calf pain, No dizziness, No heaviness, No heart racing, No lightheadedness, No muscle spasms feet, No muscle spasms hands, No painful breathing, No productive cough, No sweating, No tightness, No tingling face, No tingling hands Allergies/Adverse Reactions: No Known Drug Allergies Allergy (Verified 03/15/21 13:34) Home Medications: Roflumilast [Daliresp] 250 mcg PO UD 02/06/21 [History] Tiotropium Br/Olodaterol HCl [Stiolto Respimat Inhal [place]] 2 inh PO 1300 02/06/21 [History] Magnesium Oxide 400 mg PO DAILY PRN PRN 02/08/21 [History] Acetaminophen [Tylenol] 500 tab PO Q8H PRN 03/15/21 [History] Aspirin EC 81 mg [Ecotrin 81 mg] 81 mg PO DAILY 03/15/21 [History] Atorvastatin Calcium 80 mg PO DAILY 03/15/21 [History] Cyclobenzaprine HCl 10 mg [Cyclobenzaprine 10 MG] 10 mg PO TID PRN PRN 03/15/21 [History] Dapagliflozin Propanediol [Farxiga] 10 mg PO DAILY 03/15/21 [History] Famotidine [Pepcid] 40 mg PO UD PRN 03/15/21 [History] Furosemide 40 mg [Lasix 40 MG] 40 mg PO BID 03/15/21 [History] Guaifenesin 600 mg ER [Mucinex 600MG ER Tabs] 600 mg PO UD PRN 03/15/21 [History] Metoprolol Succinate 50 mg [Toprol Xl 50 MG] 50 mg PO DAILY 03/15/21 [History] Potassium Chloride [Klor-Con M20] 20 meq PO DAILY 03/15/21 [History] Sacubitril/Valsartan [Entresto 24 mg-26 mg Tablet] 1 each PO BID 03/15/21 [History] Tramadol HCl 50 mg [Ultram 50 mg] 50 mg PO UD PRN 03/15/21 [History] Hx Tetanus, Diphtheria Vaccination/Date Given: No Hx Influenza Vaccination/Date Given: No Hx Pneumococcal Vaccination/Date Given: No Travel Risk - International Travel Have you traveled outside of the country in past 3 weeks: No - Coronavirus Screening Are you exhibiting any of the following symptoms?: No Symptoms: Shortness of Breath - Vaccine Status Have you recieved a Covid-19 vaccination: No - Review of Systems Constitutional: No Symptoms, Weakness Eyes: No Symptoms Ears, Nose, & Throat: No Symptoms Respiratory: No Symptoms, Dyspnea on Exertion (FRANKEL) Cardiac: No Symptoms Abdominal/Gastrointestinal: No Symptoms Genitourinary Symptoms: No Symptoms Musculoskeletal: No Symptoms Skin: No Symptoms Neurological: No Symptoms Psychological: No Symptoms Endocrine: No Symptoms Hematologic/Lymphatic: No Symptoms Immunological/Allergic: No Symptoms - Past Medical History Pertinent Past Medical History: Yes Neurological History: No Pertinent History ENT History: Cataracts Cardiac History: No Pertinent History Respiratory History: COPD Endocrine Medical History: No Pertinent History Musculoskeletal History: Fractures GI Medical History: GERD, Hernia History: No Pertinent History Psycho-Social History: No Pertinent History Male Reproductive Disorders: No Pertinent History Other Medical History: HX Kidney Stones, HX Sciatic Nerve Pain - Past Surgical History Past Surgical History: Yes Neuro Surgical History: No Pertinent History Cardiac: No Pertinent History Respiratory: No Pertinent History Gastrointestinal: No Pertinent History Genitourinary: No Pertinent History Musculoskeletal: No Pertinent History Male Surgical History: No Pertinent History - Social History Smoking Status: Former smoker Exposure to second hand smoke: No Drug Use: none Patient Lives Alone: No Significant Family History: no pertinent family hx - Nursing Vital Signs Nursing Vital Signs: Initial Vital Signs Temperature 97.5 F 03/15/21 13:23 Pulse Rate 101 H 03/15/21 13:23 Respiratory Rate 16 03/15/21 13:23 Blood Pressure 150/87 03/15/21 13:23 O2 Sat by Pulse Oximetry 100 03/15/21 13:23 Pain Scale Pain Intensity 1 - Physical Exam General Appearance: no apparent distress Eye Exam: PERRL/EOMI, eyes nml inspection Ears, Nose, Throat Exam: hearing grossly normal, normal ENT inspection, normal pharynx Neck Exam: normal inspection, non-tender, supple, full range of motion, No Brudzinski, No Kernig's, No meningismus Respiratory Exam: airway intact, diminished breath sounds (Decreased BS B w occ wheeze), No respiratory distress Cardiovascular/Chest Exam: normal heart sounds, regular rate/rhythm, edema (1+B), No murmur Abdominal/Gastrointestinal Exam: soft, normal bowel sounds, No tenderness Extremity Exam: pedal edema (1+B) Neurologic Exam: alert, oriented x 3, cooperative, 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, normal mood/affect, sensation nml, No motor deficits, No sensory deficit Skin Exam: normal color, warm, dry Lymphatic Exam: No adenopathy SpO2 Interpretation: normal SpO2: 100 - Course Nursing assessment & vital signs reviewed: Yes EKG Interpreted by Me: RATE (Borderline sinus tach/Rate 100/Prolonged QTc/LVH w strain/Non-specific ST-T wave changes) - Radiology Exams Chest X-ray Interpretation: Discussed w/ radiologist (COPD/Nothing acute) - CT Exams Chest CT Interpretation: Tele-radiologist Report (No PE ) Ordered Tests: Active Orders 24 hr Category Date Time Status EKG-ER Only STAT Care 03/15/21 13:24 Completed CHEST 1 VIEW (PORTABLE) Stat Exams 03/15/21 13:33 Completed CHEST WITH CONTRAST [CT] Stat Exams 03/15/21 16:17 Taken CBC W DIFF Stat Lab 03/15/21 13:24 Completed CMP Stat Lab 03/15/21 13:40 Completed D-DIMER QUANTITATIVE Stat Lab 03/15/21 13:30 Completed NT PRO BNP Stat Lab 03/15/21 13:40 Completed PROTIME WITH INR Stat Lab 03/15/21 13:40 Completed PTT Stat Lab 03/15/21 13:40 Completed TROPONIN Q3H Lab 03/15/21 13:40 Completed TROPONIN Q3H Lab 03/15/21 17:05 Completed TROPONIN Q3H Lab 03/15/21 19:53 Completed TROPONIN Q3H Lab 03/15/21 22:30 Ordered TROPONIN Q3H Lab 03/16/21 01:30 Ordered Medication Summary Generic Name Dose Route Start Last Admin Trade Name Freq PRN Reason Stop Dose Admin Albuterol/Ipratropium 3 ml 03/15/21 23:00 Duoneb 0.5-3 Mg/3 Ml Neb IH 04/14/21 22:59 Q4HRT MAUREEN Methylprednisolone Sodium Succinate 125 mg 03/15/21 20:15 Solu-Medrol 40 Mg IV 04/14/21 20:14 Q6H MAUREEN Ondansetron HCl 4 mg 03/15/21 19:59 Zofran 4 Mg/2 Ml Vial IV 04/14/21 19:58 Q6H PRN PRN NAUSEA/VOMITING Discontinued Medications Generic Name Dose Route Start Last Admin Trade Name Freq PRN Reason Stop Dose Admin Methylprednisolone Sodium Succinate 125 mg 03/15/21 20:05 03/15/21 20:14 Solu-Medrol 125 Mg IV 03/15/21 20:06 125 mg STAT ONE Administration Methylprednisolone Sodium Succinate Confirm 03/15/21 20:05 Solu-Medrol 125 Mg Administered 03/15/21 20:06 Dose 125 mg .ROUTE .STK-MED ONE Lab/Rad Data: Laboratory Result Diagrams 03/15/21 13:24 03/15/21 13:40 Laboratory Results 03/15/21 03/15/21 03/15/21 Range/Units 19:53 18:58 17:05 WBC (4.0-10.5) K/mm3 RBC (4.1-5.6) M/mm3 Hgb (12.5-18.0) gm/dl Hct (42-50) % MCV (78-100) fl MCH (26-32) pg MCHC (32-36) g/dl RDW (11.5-14.0) % Plt Count (150-450) K/mm3 MPV (7.5-11.0) fl Gran % (36.0-66.0) % Eos # (Auto) (0-0.5) Absolute Lymphs (auto) (1.0-4.6) Absolute Monos (auto) (0.0-1.3) Lymphocytes % (24.0-44.0) % Monocytes % (0.0-12.0) % Eosinophils % (0.00-5.0) % Basophils % (0.0-0.4) % Absolute Granulocytes (1.4-6.9) Basophils # (0-0.4) PT (8.83-12.87) SECONDS INR (0.8-3.0) APTT (24.1-36.1) SECONDS D-Dimer (215-500) ng/mL Sodium (137-145) mmol/L Potassium (3.5-5.1) mmol/L Chloride (98-107) mmol/L Carbon Dioxide (22-30) mmol/L Anion Gap (5-15) MEQ/L BUN (9-20) mg/dL Creatinine (0.66-1.25) mg/dL Estimated GFR ML/MIN Glucose (74-106) mg/dL Calcium (8.4-10.2) mg/dL Total Bilirubin (0.2-1.3) mg/dL AST (17-59) U/L ALT (0-50) U/L Alkaline Phosphatase (38-126) U/L Troponin I 0.015 0.014 (0.000-0.034) ng/mL NT-Pro-B Natriuret Pep (0-900) pg/mL Serum Total Protein (6.3-8.2) g/dL Albumin (3.5-5.0) g/dL Influenza Type A Ag NEGATIVE (NEGATIVE) Influenza Type B Ag NEGATIVE (NEGATIVE) RSV (PCR) NEGATIVE (Negative) SARS-CoV-2 (PCR) NEGATIVE (NEGATIVE) 03/15/21 03/15/21 03/15/21 Range/Units 13:40 13:40 13:40 WBC (4.0-10.5) K/mm3 RBC (4.1-5.6) M/mm3 Hgb (12.5-18.0) gm/dl Hct (42-50) % MCV (78-100) fl MCH (26-32) pg MCHC (32-36) g/dl RDW (11.5-14.0) % Plt Count (150-450) K/mm3 MPV (7.5-11.0) fl Gran % (36.0-66.0) % Eos # (Auto) (0-0.5) Absolute Lymphs (auto) (1.0-4.6) Absolute Monos (auto) (0.0-1.3) Lymphocytes % (24.0-44.0) % Monocytes % (0.0-12.0) % Eosinophils % (0.00-5.0) % Basophils % (0.0-0.4) % Absolute Granulocytes (1.4-6.9) Basophils # (0-0.4) PT 14.5 H (8.83-12.87) SECONDS INR 1.28 (0.8-3.0) APTT 33.0 (24.1-36.1) SECONDS D-Dimer (215-500) ng/mL Sodium 138 (137-145) mmol/L Potassium 4.2 (3.5-5.1) mmol/L Chloride 97 L (98-107) mmol/L Carbon Dioxide 33 H (22-30) mmol/L Anion Gap 12.5 (5-15) MEQ/L BUN 20 (9-20) mg/dL Creatinine 1.24 (0.66-1.25) mg/dL Estimated GFR > 60.0 ML/MIN Glucose 105 (74-106) mg/dL Calcium 9.6 (8.4-10.2) mg/dL Total Bilirubin 0.80 (0.2-1.3) mg/dL AST 67 H (17-59) U/L ALT 94 H (0-50) U/L Alkaline Phosphatase 129 H (38-126) U/L Troponin I 0.013 (0.000-0.034) ng/mL NT-Pro-B Natriuret Pep 892 (0-900) pg/mL Serum Total Protein 7.9 (6.3-8.2) g/dL Albumin 3.6 (3.5-5.0) g/dL Influenza Type A Ag (NEGATIVE) Influenza Type B Ag (NEGATIVE) RSV (PCR) (Negative) SARS-CoV-2 (PCR) (NEGATIVE) 03/15/21 03/15/21 Range/Units 13:30 13:24 WBC 5.3 (4.0-10.5) K/mm3 RBC 4.15 (4.1-5.6) M/mm3 Hgb 12.7 (12.5-18.0) gm/dl Hct 40.8 L (42-50) % MCV 98.3 (78-100) fl MCH 30.6 (26-32) pg MCHC 31.1 L (32-36) g/dl RDW 14.4 H (11.5-14.0) % Plt Count 187 (150-450) K/mm3 MPV 10.9 (7.5-11.0) fl Gran % 63.8 (36.0-66.0) % Eos # (Auto) 0.12 (0-0.5) Absolute Lymphs (auto) 1.09 (1.0-4.6) Absolute Monos (auto) 0.70 (0.0-1.3) Lymphocytes % 20.5 L (24.0-44.0) % Monocytes % 13.2 H (0.0-12.0) % Eosinophils % 2.3 (0.00-5.0) % Basophils % 0.2 (0.0-0.4) % Absolute Granulocytes 3.39 (1.4-6.9) Basophils # 0.01 (0-0.4) PT (8.83-12.87) SECONDS INR (0.8-3.0) APTT (24.1-36.1) SECONDS D-Dimer 2147 H* (215-500) ng/mL Sodium (137-145) mmol/L Potassium (3.5-5.1) mmol/L Chloride (98-107) mmol/L Carbon Dioxide (22-30) mmol/L Anion Gap (5-15) MEQ/L BUN (9-20) mg/dL Creatinine (0.66-1.25) mg/dL Estimated GFR ML/MIN Glucose (74-106) mg/dL Calcium (8.4-10.2) mg/dL Total Bilirubin (0.2-1.3) mg/dL AST (17-59) U/L ALT (0-50) U/L Alkaline Phosphatase (38-126) U/L Troponin I (0.000-0.034) ng/mL NT-Pro-B Natriuret Pep (0-900) pg/mL Serum Total Protein (6.3-8.2) g/dL Albumin (3.5-5.0) g/dL Influenza Type A Ag (NEGATIVE) Influenza Type B Ag (NEGATIVE) RSV (PCR) (Negative) SARS-CoV-2 (PCR) (NEGATIVE) - Progress Progress Note: 03/15/21 18:[address] Hirsch 03/15/21 18:38 SO does not believe that pt can go home and needs to stay overnight. Discussed with : Eric Will see patient in: hospital (observation) - Departure Departure Disposition: Observation Clinical Impression: COPD exacerbation Condition: Stable Critical Care Time: No
[2021-03-15 14:19] LABS: INR 1.28 (0.8-3.0); PROTIME 14.5 SECONDS (8.83-12.87)
[2021-03-15 19:37] LABS: INFLUENZA A NEGATIVE (NEGATIVE); INFLUENZA B NEGATIVE (NEGATIVE); RESPIRATORY SYNCTIAL VIRUS NEGATIVE (Negative)
[2021-03-15] MEDS ORDERED: Zofran 4 MG/2 ML VIAL IV PRN (19:59)
[2021-03-15] MEDS ORDERED: solu-MEDROL 125 MG ONE (20:05)
[2021-03-15] MEDS ORDERED: solu-MEDROL 125 MG IV ONE (20:05)
[2021-03-15] MEDS ORDERED: DUONEB 0.5-3 MG/3 ml Neb IH ONE (21:56)
--- NOTE | 2021-03-15 21:56 | XRAY ---
Indication: Dyspnea. Elevated d-dimer. Multiple contiguous axial images obtained through the chest using 80 cc Isovue 370 contrast and PE protocol. Comparison: February 19, 2021. There is good opacification of the pulmonary arteries to include the lobar and segmental branches. Again no pulmonary embolus. Heart is not enlarged. Aorta again demonstrates moderate scattered arteriosclerotic calcifications without aneurysm/dissection. No pathologic mediastinal/hilar lymphadenopathy. Lungs again demonstrates diffuse pulmonary emphysema with minimal scattered fibrosis/scarring bilaterally. Grossly stable 1.3 cm left upper lobe irregular noncalcified nodule. No new pulmonary mass, infiltrate, or effusion. Bony thorax again demonstrates osteopenia with interval T10 kyphoplasty. Stable T8 superior endplate Schmorl node versus remote fracture. Limited upper abdomen unremarkable. Impression: 1. Continued negative pulmonary embolus. 2. Stable left upper lobe suspicious noncalcified nodule. 3. Again incidental pulmonary emphysema, fibrosis/scarring, and chronic bony findings. Comment: Preliminary interpretation was made by [facility]. No critical discrepancy.
[2021-03-15] MEDS: DUONEB 0.5-3 MG/3 ml Neb IH SCH (21:58)
[2021-03-15] MEDS: solu-MEDROL 40 MG IV SCH (22:29)
[2021-03-15] MEDS ORDERED: Mucinex 600MG ER Tabs PO SCH (22:30)
[2021-03-15] MEDS: ENTRESTO 49 MG-51 MG TABLET PO SCH (22:34)
[2021-03-15] MEDS: Lasix 40 MG PO SCH (22:36)
[2021-03-15] MEDS: TYLENOL EXTRA STRENGTH 500 MG PO PRN (22:36)
[2021-03-15] MEDS: Cyclobenzaprine 10 MG PO PRN (22:37)
[2021-03-16] MEDS: ULTRAM 50 MG PO SCH ×2 (02:27→09:21)
[2021-03-16] MEDS ORDERED: solu-MEDROL 125 MG ONE (02:30)
[2021-03-16] MEDS: solu-MEDROL 40 MG IV SCH (02:31)
[2021-03-16] MEDS: DUONEB 0.5-3 MG/3 ml Neb IH SCH ×2 (03:20→06:28)
[2021-03-16] MEDS: TYLENOL EXTRA STRENGTH 500 MG PO PRN ×2 (05:22→20:33)
[2021-03-16 06:50] LABS: Absolute Neutrophil Ct (ANC) 2.55 (1.4-6.9); Basophil (Absolute #) 0 (0-0.4); Eosinophil (Absolute #) 0 (0-0.5); Hematocrit 40.1 % (42-50); Hemoglobin 12.5 gm/dl (12.5-18.0); Lymphocyte (Absolute #) 0.22 (1.0-4.6); Lymphocytes % 7.8 % (24.0-44.0); Mean Cell Volume 97.8 fl (78-100); Mean Corpuscular Hemoglobin 30.5 pg (26-32); Mean Corpuscular Hgb Concent. 31.2 g/dl (32-36); Mean Platelet Volume 10.9 fl (7.5-11.0); Monocyte (Absolute #) 0.04 (0.0-1.3); Monocytes % 1.4 % (0.0-12.0); Neutrophil % 90.8 % (36.0-66.0); Platelet Count 190 K/mm3 (150-450); Red Cell Distribution Width 14.2 % (11.5-14.0); White Blood Count 2.8 K/mm3 (4.0-10.5)
[2021-03-16 07:27] LABS: ALBUMIN 3.3 g/dL (3.5-5.0); ALKALINE PHOSPHATASE 126 U/L (38-126); ANION GAP 10.7 MEQ/L (5-15); BLOOD UREA NITROGEN 23 mg/dL (9-20); CHLORIDE 98 mmol/L (98-107); Calcium 9.7 mg/dL (8.4-10.2); Carbon Dioxide 32 mmol/L (22-30); Creatinine 1 0.96 mg/dL (0.66-1.25); EST GLOMERULAR FILTRATION RATE > 60.0 ML/MIN; Glucose 189 mg/dL (74-106); Potassium 4.9 mmol/L (3.5-5.1); SGOT/AST 61 U/L (17-59); SGPT/ALT 89 U/L (0-50); SODIUM 136 mmol/L (137-145); Total Protein 7.2 g/dL (6.3-8.2)
[2021-03-16] MEDS ORDERED: NON-FORMULARY ITEM (Famotidine [Pepcid] 40 MG) PO PRN (07:50)
[2021-03-16] MEDS ORDERED: Mucinex 600MG ER Tabs PO PRN (08:00)
[2021-03-16] MEDS ORDERED: solu-MEDROL 125 MG IV SCH ×2 (09:00→18:00)
[2021-03-16] MEDS: Cyclobenzaprine 10 MG PO PRN (09:18)
[2021-03-16] MEDS: ZOCOR 20MG PO SCH (09:18)
[2021-03-16] MEDS: Lasix 40 MG PO SCH ×2 (09:18→16:25)
[2021-03-16] MEDS: Klor Con 10 MEQ PO SCH (09:19)
[2021-03-16] MEDS: ENTRESTO 49 MG-51 MG TABLET PO SCH ×2 (09:20→22:11)
[2021-03-16] MEDS: ECOTRIN 81 MG PO SCH (09:20)
[2021-03-16] MEDS ORDERED: ULTRAM 50 MG PO PRN (09:42)
[2021-03-16] MEDS ORDERED: NON-FORMULARY ITEM (Potassium Chloride [Klor-Con M20] 20 MEQ) PO SCH (10:00)
[2021-03-16] MEDS ORDERED: Pepcid 20 MG PO SCH (10:00)
[2021-03-16] MEDS ORDERED: NON-FORMULARY ITEM (Atorvastatin Calcium [Atorvastatin Calcium] 80 MG) PO SCH (10:00)
[2021-03-16] MEDS: Cyclobenzaprine 10 MG PO SCH ×3 (10:04→22:11)
[2021-03-16] MEDS ORDERED: DUONEB 0.5-3 MG/3 ml Neb IH PRN (10:41)
[2021-03-16] MEDS: Toprol Xl 50 MG PO SCH ×2 (11:23→11:34)
[2021-03-16 11:59] LABS: MAGNESIUM 2.1 mg/dL (1.6-2.3); TSH, 3RD Generation 0.138 mIU/L (0.47-4.68)
[2021-03-16] MEDS ORDERED: TIOTROPIUM BR PO SCH (13:00)
[2021-03-16] MEDS ORDERED: Toprol Xl 50 MG PO ONE (13:00)
[2021-03-16] MEDS ORDERED: OLODATEROL HCL PO SCH (13:00)
[2021-03-16] MEDS: ENOXAPARIN SODIUM SQ SCH (14:55)
--- NOTE | 2021-03-16 15:21 | PCM.HP ---
History of Present Illness - Chief Complaint Chief Complaint: COPD History of Present Illness: is a 75 year old male with recent PR treated at [facility] by Dr Smith. Had heart cath but no stents -patient reports he was told 60% lesion to be treated medically. He also was treated for thoracic compression fracture with vertebroplasty . T10 biopsy showed malignancy (metastatic) with special stains results pending, primary not identified. He does have lung nodule read as suspi cous but stable on CT.His father had colon cancer. He is to see Dr Lee but missed his appt due to a dizzy/weak spell the day of appt. He has been having spells of dizziness with extreme weakness and shortness of breath that last for a few minutes since discharged from [facility] 2-3 weeks ago. He had a spell this morning while in bed watching TV and Tele showed Vtach 16 beat. He is now in sinus tach 120. I phone consulted with Dr Kelsey who is covering Dr Smith.He advised to transfer and he would consult but Hospitalist refused to accept patient stating no PCU or ICU beds available. - Review of Systems Constitutional: Weakness, Weight Loss Eyes: No Symptoms Ears, Nose, & Throat: No Symptoms Respiratory: Short Of Breath, Other (wears O2 at night at home but feels he needs it all the time recently) Cardiac: Palpitations Abdominal/Gastrointestinal: No Symptoms Genitourinary Symptoms: No Symptoms Musculoskeletal: Back Pain, Injury (fell into the refidgerator had T10 compre ssion fx and rib fracture about a month ago) Skin: No Symptoms Neurological: Dizziness (no focal weakness) Psychological: Anxiety (over health issues) Endocrine: No Symptoms Hematologic/Lymphatic: No Symptoms Immunological/Allergic: No Symptoms Medications & Allergies Home Medications: Home Medication List Roflumilast [Daliresp] 250 mcg PO UD 02/06/21 [History Confirmed 03/15/21] Tiotropium Br/Olodaterol HCl [Stiolto Respimat Inhal Ferdinand] 2 inh PO 1300 02/06/21 [History Confirmed 03/15/21] Magnesium Oxide 400 mg PO DAILY PRN PRN 02/08/21 [History Confirmed 03/15/21] Acetaminophen [Tylenol] 500 tab PO Q8H PRN 03/15/21 [History Confirmed 03/15/21] Aspirin EC 81 mg [Ecotrin 81 mg] 81 mg PO DAILY 03/15/21 [History Confirmed 03/15/21] Atorvastatin Calcium 80 mg PO DAILY 03/15/21 [History Confirmed 03/15/21] Cyclobenzaprine HCl 10 mg [Cyclobenzaprine 10 MG] 10 mg PO TID 03/15/21 [History Confirmed 03/16/21] Dapagliflozin Propanediol [Farxiga] 10 mg PO DAILY 03/15/21 [History Confirmed 03/15/21] Famotidine [Pepcid] 40 mg PO HS 03/15/21 [History Confirmed 03/16/21] Furosemide 40 mg [Lasix 40 MG] 40 mg PO BID 03/15/21 [History Confirmed 03/15/21] Guaifenesin 600 mg ER [Mucinex 600MG ER Tabs] 600 mg PO UD PRN 03/15/21 [History Confirmed 03/15/21] Metoprolol Succinate 50 mg [Toprol Xl 50 MG] 50 mg PO DAILY 03/15/21 [History Confirmed 03/15/21] Potassium Chloride [Klor-Con M20] 20 meq PO DAILY 03/15/21 [History Confirmed 03/15/21] Sacubitril/Valsartan [Entresto 24 mg-26 mg Tablet] 1 each PO BID 03/15/21 [History Confirmed 03/15/21] Tramadol HCl 50 mg [Ultram 50 mg] 50 mg PO UD PRN 03/15/21 [History Confirmed 03/15/21] Allergies/Adverse Reactions: Allergies Allergy/AdvReac Type Severity Reaction Status Date / Time No Known Drug Allergies Allergy Verified 03/15/21 13:34 - Past Medical History Past Medical History: Yes Neurological History: No Pertinent History ENT History: Cataracts Cardiac History: No Pertinent History, Congenital Heart Disease, Coronary Artery Disease, High Cholesterol, Hypertension, Myocardial Infarction (PR) Respiratory History: COPD Endocrine Medical History: No Pertinent History Musculoskelatal History: Fractures (T10 compression fracture,rib fracture) GI Medical History: GERD, Hernia History: No Pertinent History Pyscho-Social History: No Pertinent History Male Reproductive Disorders: No Pertinent History Comment: HX Kidney Stones, HX Sciatic Nerve Pain - Past Surgical History Past Surgical History: Yes Neuro Surgical History: No Pertinent History Cardiac History: No Pertinent History, Cardiac Catheterization (February 2021 Dr Smith) Respiratory Surgery: No Pertinent History GI Surgical History: No Pertinent History Genitourinary Surgical Hx: No Pertinent History Musculskeletal Surgical Hx: No Pertinent History Male Surgical History: No Pertinent History - Social History Smoking Status: Former smoker How long have you smoked: quit 5yrs Exposure to second hand smoke: No Alcohol: Rarely Drug Use: none Significant Family History: no pertinent family hx - Physical Exam Vital Signs: Vital Signs - 24 hr Temp Pulse Resp BP Pulse Ox 03/16/21 12:00 97.5 F 118 H 20 144/68 95 03/16/21 10:42 105 H 20 95 03/16/21 08:00 97.7 F 107 H 22 155/78 95 03/16/21 06:28 103 H 18 95 03/16/21 03:32 97.9 F 98 H 18 139/67 94 L 03/16/21 00:00 97.9 F 109 H 18 127/64 92 L 03/15/21 22:18 97.5 F 102 H 18 135/75 98 03/15/21 22:02 103 H 18 96 03/15/21 21:21 100 03/15/21 20:55 97.5 F 102 H 18 135/75 98 03/15/21 20:09 84 20 120/88 95 03/15/21 20:03 97.5 F 102 H 135/75 100 03/15/21 19:09 87 16 142/73 98 03/15/21 18:06 93 H 15 119/79 90 L 03/15/21 17:32 100 H 19 119/79 98 03/15/21 15:08 81 21 145/85 96 General Appearance: mild distress, anxiety Neurologic Exam: alert, oriented x 3, cooperative, normal mood/affect (inquisitive) Eye Exam: eyes nml inspection Ears, Nose, Throat Exam: normal ENT inspection Neck Exam: other (thyroid not enlarged not tender) Respiratory Exam: diminished breath sounds Cardiovascular Exam: tachycardia, edema (trace to 1+ pitting edema,calves soft not tender) Results - Labs Lab/Micro Results: Lab Results-Last 24 Hours 03/15/21 03/15/21 03/15/21 Range/Units 13:30 17:05 18:58 WBC (4.0-10.5) K/mm3 RBC (4.1-5.6) M/mm3 Hgb (12.5-18.0) gm/dl Hct (42-50) % MCV (78-100) fl MCH (26-32) pg MCHC (32-36) g/dl RDW (11.5-14.0) % Plt Count (150-450) K/mm3 MPV (7.5-11.0) fl Gran % (36.0-66.0) % Eos # (Auto) (0-0.5) Absolute Lymphs (auto) (1.0-4.6) Absolute Monos (auto) (0.0-1.3) Lymphocytes % (24.0-44.0) % Monocytes % (0.0-12.0) % Eosinophils % (0.00-5.0) % Basophils % (0.0-0.4) % Absolute Granulocytes (1.4-6.9) Basophils # (0-0.4) D-Dimer 2147 H* (215-500) ng/mL Sodium (137-145) mmol/L Potassium (3.5-5.1) mmol/L Chloride (98-107) mmol/L Carbon Dioxide (22-30) mmol/L Anion Gap (5-15) MEQ/L BUN (9-20) mg/dL Creatinine (0.66-1.25) mg/dL Estimated GFR ML/MIN Glucose (74-106) mg/dL Calcium (8.4-10.2) mg/dL Magnesium (1.6-2.3) mg/dL Total Bilirubin (0.2-1.3) mg/dL AST (17-59) U/L ALT (0-50) U/L Alkaline Phosphatase (38-126) U/L Troponin I 0.014 (0.000-0.034) ng/mL Serum Total Protein (6.3-8.2) g/dL Albumin (3.5-5.0) g/dL Vitamin B12 (239-931) pg/mL 25-OH Vitamin D Total (30-100) ng/mL TSH 3rd Generation (0.47-4.68) mIU/L Influenza Type A Ag NEGATIVE (NEGATIVE) Influenza Type B Ag NEGATIVE (NEGATIVE) RSV (PCR) NEGATIVE (Negative) SARS-CoV-2 (PCR) NEGATIVE (NEGATIVE) 03/15/21 03/16/21 03/16/21 Range/Units 19:53 06:00 06:00 WBC 2.8 L (4.0-10.5) K/mm3 RBC 4.10 (4.1-5.6) M/mm3 Hgb 12.5 (12.5-18.0) gm/dl Hct 40.1 L (42-50) % MCV 97.8 (78-100) fl MCH 30.5 (26-32) pg MCHC 31.2 L (32-36) g/dl RDW 14.2 H (11.5-14.0) % Plt Count 190 (150-450) K/mm3 MPV 10.9 (7.5-11.0) fl Gran % 90.8 H (36.0-66.0) % Eos # (Auto) 0 (0-0.5) Absolute Lymphs (auto) 0.22 L (1.0-4.6) Absolute Monos (auto) 0.04 (0.0-1.3) Lymphocytes % 7.8 L (24.0-44.0) % Monocytes % 1.4 (0.0-12.0) % Eosinophils % 0.0 (0.00-5.0) % Basophils % 0.0 (0.0-0.4) % Absolute Granulocytes 2.55 (1.4-6.9) Basophils # 0 (0-0.4) D-Dimer (215-500) ng/mL Sodium 136 L (137-145) mmol/L Potassium 4.9 (3.5-5.1) mmol/L Chloride 98 (98-107) mmol/L Carbon Dioxide 32 H (22-30) mmol/L Anion Gap 10.7 (5-15) MEQ/L BUN 23 H (9-20) mg/dL Creatinine 0.96 (0.66-1.25) mg/dL Estimated GFR > 60.0 ML/MIN Glucose 189 H (74-106) mg/dL Calcium 9.7 (8.4-10.2) mg/dL Magnesium (1.6-2.3) mg/dL Total Bilirubin 0.60 (0.2-1.3) mg/dL AST 61 H (17-59) U/L ALT 89 H (0-50) U/L Alkaline Phosphatase 126 (38-126) U/L Troponin I 0.015 (0.000-0.034) ng/mL Serum Total Protein 7.2 (6.3-8.2) g/dL Albumin 3.3 L (3.5-5.0) g/dL Vitamin B12 (239-931) pg/mL 25-OH Vitamin D Total (30-100) ng/mL TSH 3rd Generation (0.47-4.68) mIU/L Influenza Type A Ag (NEGATIVE) Influenza Type B Ag (NEGATIVE) RSV (PCR) (Negative) SARS-CoV-2 (PCR) (NEGATIVE) 03/16/21 03/16/21 Range/Units 09:00 09:00 WBC (4.0-10.5) K/mm3 RBC (4.1-5.6) M/mm3 Hgb (12.5-18.0) gm/dl Hct (42-50) % MCV (78-100) fl MCH (26-32) pg MCHC (32-36) g/dl RDW (11.5-14.0) % Plt Count (150-450) K/mm3 MPV (7.5-11.0) fl Gran % (36.0-66.0) % Eos # (Auto) (0-0.5) Absolute Lymphs (auto) (1.0-4.6) Absolute Monos (auto) (0.0-1.3) Lymphocytes % (24.0-44.0) % Monocytes % (0.0-12.0) % Eosinophils % (0.00-5.0) % Basophils % (0.0-0.4) % Absolute Granulocytes (1.4-6.9) Basophils # (0-0.4) D-Dimer (215-500) ng/mL Sodium (137-145) mmol/L Potassium (3.5-5.1) mmol/L Chloride (98-107) mmol/L Carbon Dioxide (22-30) mmol/L Anion Gap (5-15) MEQ/L BUN (9-20) mg/dL Creatinine (0.66-1.25) mg/dL Estimated GFR ML/MIN Glucose (74-106) mg/dL Calcium (8.4-10.2) mg/dL Magnesium 2.1 (1.6-2.3) mg/dL Total Bilirubin (0.2-1.3) mg/dL AST (17-59) U/L ALT (0-50) U/L Alkaline Phosphatase (38-126) U/L Troponin I (0.000-0.034) ng/mL Serum Total Protein (6.3-8.2) g/dL Albumin (3.5-5.0) g/dL Vitamin B12 460 (239-931) pg/mL 25-OH Vitamin D Total < 12.8 L (30-100) ng/mL TSH 3rd Generation 0.138 L (0.47-4.68) mIU/L Influenza Type A Ag (NEGATIVE) Influenza Type B Ag (NEGATIVE) RSV (PCR) (Negative) SARS-CoV-2 (PCR) (NEGATIVE) - Radiology Impressions Radiology Exams & Impressions: Radiology Procedures Category Date Time Status CHEST 1 VIEW (PORTABLE) Stat Exams 03/15/21 13:33 Completed CHEST WITH CONTRAST [CT] Stat Exams 03/15/21 16:17 Completed ECHO W/2D AND DOPPLER [US] Routine Exams 03/16/21 Ordered - Other Procedures and Tests Respiratory Therapy 03/15/21 19:59 Oxygen Nasal Cannula 4 lpm 03/15/21 21:03 Respiratory Therapy Assessment DAILY Assessment/Plan (1) COPD exacerbation Current Visit: Yes Status: Acute Assessment & Plan: improved with Solumedrol 125mg q 6hrs per ER. held doses due to tachy arrythmia. 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 Code(s): I47.2 - VENTRICULAR TACHYCARDIA (3) Metastatic bone cancer Current Visit: Yes Status: Acute Assessment & Plan: missed appt with DR Lee [facility] last Thursday due to having the dizzy /weak spell and could not travel to [place]. T10 Bx done at [facility] earlier this month shows a malignancy but final report is pending since special stains pending. Code(s): C41.9 - MALIGNANT NEOPLASM OF BONE AND ARTICULAR CARTILAGE, UNSP (4) Hyperthyroidism determined by thyroid function test Current Visit: Yes Status: Acute Assessment & Plan: TSH =0.138 , T4 pending-needs thyroid US Code(s): E05.90 - THYROTOXICOSIS, UNSP WITHOUT THYROTOXIC CRISIS OR STORM; R94.6 - ABNORMAL RESULTS OF THYROID FUNCTION STUDIES (5) D-dimer, elevated Current Visit: Yes Status: Acute Assessment & Plan: CT chest neg for PE, ECHO ordered ,Lovenox started. Code(s): R79.89 - OTHER SPECIFIED ABNORMAL FINDINGS OF BLOOD CHEMISTRY (6) CAD (coronary artery disease) Current Visit: Yes Status: Chronic Qualifiers: Associated angina: without angina Assessment & Plan: PR earlier this month . Heart Cath no stents -Dr Smith at [facility] Code(s): I25.10 - ATHSCL HEART DISEASE OF [place] CORONARY ARTERY W/O ANG PCTRS
[2021-03-16] MEDS: solu-MEDROL 125 MG IV SCH (22:10)
[2021-03-16] MEDS: Pepcid 20 MG PO SCH (22:11)
[2021-03-17] MEDS: TYLENOL EXTRA STRENGTH 500 MG PO PRN ×2 (05:46→16:54)
[2021-03-17] MEDS: solu-MEDROL 125 MG IV SCH ×2 (07:47→21:02)
[2021-03-17] MEDS: Toprol Xl 50 MG PO SCH (09:04)
[2021-03-17] MEDS: Klor Con 10 MEQ PO SCH (09:04)
[2021-03-17] MEDS: MAG-OX 400 PO SCH (09:04)
[2021-03-17] MEDS: ENTRESTO 49 MG-51 MG TABLET PO SCH ×2 (09:04→21:02)
[2021-03-17] MEDS: ZOCOR 20MG PO SCH (09:05)
[2021-03-17] MEDS: Lasix 40 MG PO SCH ×2 (09:05→16:55)
[2021-03-17] MEDS: Cyclobenzaprine 10 MG PO SCH ×3 (09:05→21:03)
[2021-03-17] MEDS: ENOXAPARIN SODIUM SQ SCH (09:05)
[2021-03-17] MEDS: ECOTRIN 81 MG PO SCH (09:05)
[2021-03-17] MEDS: DALIRESP PO SCH (09:14)
[2021-03-17] MEDS ORDERED: Toprol Xl 50 MG PO ONE (13:00)
--- NOTE | 2021-03-17 15:17 | PCM.NOTE ---
Date and Time: 03/17/21 1517 Subjective Assessment: Patient better today,less anxious,no more weak/dizzy spells. Tele shows sinus tach down to 90 down from 120s yesterday No cough or dyspnea today. Decreasing solumedrol,was given additional Metoprolol dose yesterday and he had not taken meds day of admission. [id number] neg for PE. 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 Transfer to [facility] denied due to no PCU/ICU beds available Objective Exam General Appearance: no apparent distress, anxiety (improved) Neurologic Exam: alert, oriented x 3, cooperative Skin Exam: normal color, warm, dry Neck Exam: other (thyroid palpable nontender not enlarged) Respiratory Exam: diminished breath sounds (bases no wheeze or ronch or raled) Cardiovascular Exam: tachycardia (90 rate) Gastrointestinal/Abdomen Exam: soft (nontender) Extremity Exam: other (trace ankle edema ,calves soft nontender) OBJECTIVE DATA Vital Signs: Vital Signs - 24 hr Temp Pulse Resp BP Pulse Ox 03/17/21 11:48 98.5 F 92 H 16 141/64 94 L 03/17/21 10:20 112 H 20 94 L 03/17/21 07:37 98.0 F 71 16 130/71 93 L 03/17/21 03:56 97.6 F 90 18 140/69 96 03/16/21 23:50 97.9 F 89 17 131/77 97 03/16/21 20:00 97.5 F 99 H 20 145/72 95 03/16/21 19:29 98 H 18 98 03/16/21 16:00 98.1 F 109 H 20 123/59 95 Pain Assessment - Last Documented Pain Intensity 0 Pain Scale Used 0-10 Pain Scale Intake and Output: Intake & Output 03/15/21 03/16/21 03/17/21 03/18/21 11:59 11:59 11:59 11:59 Intake Total 700 240 480 Output Total 500 1200 250 Balance 200 -960 230 Weight 75.2 kg 75.4 kg Radiology Exams: Radiology Procedures Category Date Time Status CHEST WITH CONTRAST [CT] Stat Exams 03/15/21 16:17 Completed ECHO W/2D AND DOPPLER [US] Routine Exams 03/16/21 Ordered Assessment/Plan (1) COPD exacerbation Current Visit: Yes Status: Acute Assessment & Plan: improved,reducing Solumedrol Code(s): J44.1 - CHRONIC OBSTRUCTIVE PULMONARY DISEASE W (ACUTE) EXACERBATION (2) 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 TPO and Thyroid US ordered. Code(s): E05.90 - THYROTOXICOSIS, UNSP WITHOUT THYROTOXIC CRISIS OR STORM; R94.6 - ABNORMAL RESULTS OF THYROID FUNCTION STUDIES (5) D-dimer, elevated Current Visit: Yes Status: Acute Code(s): R79.89 - OTHER SPECIFIED ABNORMAL FINDINGS OF BLOOD CHEMISTRY
[2021-03-17] MEDS: Pepcid 20 MG PO SCH (21:03)
[2021-03-18] MEDS: TYLENOL EXTRA STRENGTH 500 MG PO PRN ×4 (01:34→22:34)
[2021-03-18 08:14] LABS: Absolute Neutrophil Ct (ANC) 6.38 (1.4-6.9); Basophil (Absolute #) 0 (0-0.4); Eosinophil (Absolute #) 0 (0-0.5); Hematocrit 42.2 % (42-50); Lymphocyte (Absolute #) 0.39 (1.0-4.6); Lymphocytes % 5.4 % (24.0-44.0); Mean Cell Volume 99.1 fl (78-100); Mean Corpuscular Hemoglobin 30.5 pg (26-32); Mean Corpuscular Hgb Concent. 30.8 g/dl (32-36); Mean Platelet Volume 11.2 fl (7.5-11.0); Monocyte (Absolute #) 0.45 (0.0-1.3); Monocytes % 6.2 % (0.0-12.0); Neutrophil % 88.4 % (36.0-66.0); Platelet Count 203 K/mm3 (150-450); Red Blood Count 4.26 M/mm3 (4.1-5.6); Red Cell Distribution Width 14.4 % (11.5-14.0); White Blood Count 7.2 K/mm3 (4.0-10.5)
[2021-03-18 08:33] LABS: ALBUMIN 3.5 g/dL (3.5-5.0); ALKALINE PHOSPHATASE 126 U/L (38-126); ANION GAP 10.9 MEQ/L (5-15); BLOOD UREA NITROGEN 35 mg/dL (9-20); CHLORIDE 99 mmol/L (98-107); Calcium 9.8 mg/dL (8.4-10.2); Carbon Dioxide 34 mmol/L (22-30); Creatinine 1 1.16 mg/dL (0.66-1.25); EST GLOMERULAR FILTRATION RATE > 60.0 ML/MIN; Glucose 143 mg/dL (74-106); Potassium 4.7 mmol/L (3.5-5.1); SGOT/AST 64 U/L (17-59); SGPT/ALT 76 U/L (0-50); SODIUM 139 mmol/L (137-145); Total Protein 7.4 g/dL (6.3-8.2)
[2021-03-18 09:04] LABS: Slide Review 1 YES
[2021-03-18] MEDS: solu-MEDROL 125 MG IV SCH ×2 (09:33→22:18)
[2021-03-18] MEDS: Cyclobenzaprine 10 MG PO SCH ×3 (09:43→22:18)
[2021-03-18] MEDS: ENTRESTO 49 MG-51 MG TABLET PO SCH ×2 (09:43→22:17)
[2021-03-18] MEDS: ZOCOR 20MG PO SCH (09:43)
[2021-03-18] MEDS: Klor Con 10 MEQ PO SCH (09:44)
[2021-03-18] MEDS: ECOTRIN 81 MG PO SCH (09:44)
[2021-03-18] MEDS: MAG-OX 400 PO SCH (09:45)
[2021-03-18] MEDS: Lasix 40 MG PO SCH ×2 (09:45→17:26)
[2021-03-18] MEDS: ENOXAPARIN SODIUM SQ SCH (09:45)
[2021-03-18] MEDS: Toprol Xl 50 MG PO SCH (09:45)
--- NOTE | 2021-03-18 12:05 | PCM.NOTE ---
Date and Time: 03/18/21 1200 Subjective Assessment: Pt with no complaints; not dizzy but hasn't been up much. Breathing is ok. Mya po fine. At home he is on O2 at night only. - Review of Systems Constitutional: No Fever Respiratory: Short Of Breath Objective Exam General Appearance: no apparent distress, alert Neurologic Exam: oriented x 3, cooperative Skin Exam: normal color, warm, dry, No rash Ears, Nose, Throat Exam: moist mucous membranes Neck Exam: normal inspection Respiratory Exam: diminished breath sounds (fair air exchange), No crackles/rales, No rhonchi, No wheezing Cardiovascular Exam: regular rate/rhythm, normal heart sounds, No murmur Gastrointestinal/Abdomen Exam: soft, normal bowel sounds, distention (appears chronic), No tenderness, No mass, No guarding, No rebound Extremity Exam: normal inspection, No pedal edema, No swelling Back Exam: normal inspection, No rash OBJECTIVE DATA Vital Signs: Vital Signs - 24 hr Temp Pulse Resp BP Pulse Ox 03/18/21 11:58 98.2 F 96 H 15 141/66 94 L 03/18/21 08:00 96.9 F 88 14 137/65 96 03/18/21 04:00 97.9 F 105 H 19 146/81 96 03/18/21 00:00 79 18 03/17/21 19:33 98.7 F 87 17 136/69 96 03/17/21 19:05 90 16 97 03/17/21 16:00 98.2 F 93 H 16 133/68 95 Pain Assessment - Last Documented Pain Intensity 3 Pain Scale Used 0-10 Pain Scale Intake and Output: Intake & Output 03/16/21 03/17/21 03/18/21 03/19/21 11:59 11:59 11:59 11:59 Intake Total 696 065 9854 Output Total 500 1200 1300 Balance 200 -960 -120 Weight 75.2 kg 75.4 kg Lab Results: Lab Results-Last 24 Hours 03/18/21 03/18/21 03/18/21 Range/Units 07:35 07:35 07:35 WBC 7.2 (4.0-10.5) K/mm3 RBC 4.26 (4.1-5.6) M/mm3 Hgb 13.0 (12.5-18.0) gm/dl Hct 42.2 (42-50) % MCV 99.1 (78-100) fl MCH 30.5 (26-32) pg MCHC 30.8 L (32-36) g/dl RDW 14.4 H (11.5-14.0) % Plt Count 203 (150-450) K/mm3 MPV 11.2 H (7.5-11.0) fl Gran % 88.4 H (36.0-66.0) % Eos # (Auto) 0 (0-0.5) Absolute Lymphs (auto) 0.39 L (1.0-4.6) Absolute Monos (auto) 0.45 (0.0-1.3) Lymphocytes % 5.4 L (24.0-44.0) % Monocytes % 6.2 (0.0-12.0) % Eosinophils % 0.0 (0.00-5.0) % Basophils % 0.0 (0.0-0.4) % Absolute Granulocytes 6.38 (1.4-6.9) Basophils # 0 (0-0.4) Sodium 139 (137-145) mmol/L Potassium 4.7 (3.5-5.1) mmol/L Chloride 99 (98-107) mmol/L Carbon Dioxide 34 H (22-30) mmol/L Anion Gap 10.9 (5-15) MEQ/L BUN 35 H (9-20) mg/dL Creatinine 1.16 (0.66-1.25) mg/dL Estimated GFR > 60.0 ML/MIN Glucose 143 H (74-106) mg/dL Calcium 9.8 (8.4-10.2) mg/dL Total Bilirubin 0.40 (0.2-1.3) mg/dL AST 64 H (17-59) U/L ALT 76 H (0-50) U/L Alkaline Phosphatase 126 (38-126) U/L NT-Pro-B Natriuret Pep 2020 H (0-900) pg/mL Serum Total Protein 7.4 (6.3-8.2) g/dL Albumin 3.5 (3.5-5.0) g/dL Slides for Path Review YES Radiology Exams: Radiology Procedures Category Date Time Status THYROID [US] Routine Exams 03/18/21 Ordered Assessment/Plan (1) COPD exacerbation Current Visit: Yes Status: Acute Assessment & Plan: He is down to 60mg IV q12h without wheezing - home on po steroids tomorrow. Code(s): J44.1 - CHRONIC OBSTRUCTIVE PULMONARY DISEASE W (ACUTE) EXACERBATION (2) CAD (coronary artery disease) Current Visit: Yes Status: Acute Qualifiers: Coronary Disease-Associated Artery/Lesion type: [place] artery [place] vs. transplanted heart: [place] heart Associated angina: without angina Qualified Code(s): I25.10 - Atherosclerotic heart disease of [place] coronary artery without angina pectoris Assessment & Plan: Pt was supposed to be transferred to [facility] in light of his recent SC (in early February 2021) and some Vtach on the monitor here with dizziness; Dr. Darling had spoken with Dr. Kelsey, who is on for Dr. Cook. However, [facility] is apparently on diversion and pt was unable to transfer. He has had no further episodes here, and is now supposed to discharge to home tomorrow after getting echocardiogram. I spoke with Dr. Kelsey again today, and he said that as long is pt is on beta [place], with K+ > 4 and Mg > 2, he is fine to discharge to home (as yet, pt is meeting those requirements). He suggested pt see Dr. Cook soon. Code(s): I25.10 - ATHSCL HEART DISEASE OF [place] CORONARY ARTERY W/O ANG PCTRS (3) Hyperthyroidism determined by thyroid function test Current Visit: Yes Status: Acute Assessment & Plan: T3 and t4 are pending. 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
[2021-03-18] MEDS ORDERED: VITAMIN D2 PO SCH (14:00)
[2021-03-18] MEDS: Pepcid 20 MG PO SCH (22:17)
[2021-03-19 06:18] LABS: ANION GAP 12.7 MEQ/L (5-15); BLOOD UREA NITROGEN 41 mg/dL (9-20); CHLORIDE 96 mmol/L (98-107); Calcium 9.7 mg/dL (8.4-10.2); Carbon Dioxide 34 mmol/L (22-30); Creatinine 1 1.09 mg/dL (0.66-1.25); EST GLOMERULAR FILTRATION RATE > 60.0 ML/MIN; Glucose 157 mg/dL (74-106); MAGNESIUM 2.3 mg/dL (1.6-2.3); Potassium 4.6 mmol/L (3.5-5.1); SODIUM 138 mmol/L (137-145)
[2021-03-19 07:57] VITALS: BP 141/67; PULSE 103; O2SAT 95
[2021-03-19] MEDS: solu-MEDROL 125 MG IV SCH (10:14)
[2021-03-19] MEDS: ECOTRIN 81 MG PO SCH (10:15)
[2021-03-19] MEDS: Cyclobenzaprine 10 MG PO SCH (10:15)
[2021-03-19] MEDS: ENOXAPARIN SODIUM SQ SCH (10:15)
[2021-03-19] MEDS: DALIRESP PO SCH (10:15)
[2021-03-19] MEDS: Lasix 40 MG PO SCH (10:16)
[2021-03-19] MEDS: MAG-OX 400 PO SCH (10:16)
[2021-03-19] MEDS: ZOCOR 20MG PO SCH (10:16)
[2021-03-19] MEDS: Klor Con 10 MEQ PO SCH (10:16)
[2021-03-19] MEDS: ENTRESTO 49 MG-51 MG TABLET PO SCH (10:16)
[2021-03-19] MEDS: Toprol Xl 50 MG PO SCH (10:16)
--- NOTE | 2021-03-19 10:32 | XRAY ---
Indication: Hyperthyroidism. Two-dimensional thyroid sonogram performed. Comparison: None No thyromegaly. Right lobe measures 2.6 x 1.4 x 1.3 cm and the left measures 3.3 x 1.5 x 1.0 cm. Isthmus measures 3.4 mm. No focal solid/cystic thyroid mass or abnormal color Doppler flow. Impression: Negative thyroid sonogram.
[2021-03-19] MEDS: TYLENOL EXTRA STRENGTH 500 MG PO PRN (12:21)
== END 2021-03-19 12:50 | disposition home health service (06) ==
LOC: ED 13:17 → MED SURG 19:58 → INTOOBSV 03-16 15:03 → OBSVTOIN 03-16 15:03
PROVIDERS: ADMIT Family Medicine; ATTEND Family Medicine
DX: J44.1 Chronic obstructive pulmonary disease with (acute) exacerbation (principal); Z99.81 Dependence on supplemental oxygen; Z79.899 Other long term (current) drug therapy; R42 Dizziness and giddiness; R53.1 Weakness; F41.9 Anxiety disorder, unspecified; I10 Essential (primary) hypertension; I47.2 Ventricular tachycardia; C41.9 Malignant neoplasm of bone and articular cartilage, unspecified; E05.90 Thyrotoxicosis, unspecified without thyrotoxic crisis or storm; R79.89 Other specified abnormal findings of blood chemistry; I25.10 Atherosclerotic heart disease of native coronary artery without angina pectoris; Z20.828 Contact with and (suspected) exposure to other viral communicable diseases; M54.9 Dorsalgia, unspecified; E78.00 Pure hypercholesterolemia, unspecified
CPT/HCPCS: 0241U; 36415; 71045; 71260; 76536; 80048; 80053; 82306; 82607; 83735; 83880; 84439; 84443; 84484; 85025; 85379; 85610; 85730; 86376; 93005; 93268; 93306; 94640; 94760; 99285; G0378; J1650; J2920; J2930; A9270-GY